=== PATIENT | male | born 1950 | race Caucasian/White ===

== ENCOUNTER 2018-07-13 14:55 | Emergency (ER) | payer SELFPAY ==
[~2018-07-13] VITALS: Ht 175.3 cm; Wt 68.0 kg
--- NOTE | 2018-07-13 15:23 | Emergency Room Report ---
History of Present Illness General Chief Complaint: Abdominal Pain Source: Patient Present Illness HPI Mr. Waters presents with need for urgent hemodialysis. Patient of Dr. Gibson. Patient did not want to be admitted or have a prolonged ED stay. So, he decided to leave against medical advice. He will return in the morning after he makes arrangements for his pet and relative. His last HD session was last . His private auto was not functioning. Consequently, he did not have transportation. He has decision making capability. He understands the risk of arrhthymia and . Discussion was witnessed by RN. Allergies: Coded Allergies: No Known Allergies (Unverified , 07/13/18) Nursing Documentation-H Past Medical History: No History, Except For Hx Gastrointestinal Problems: Yes - constipation Hx Dialysis: Yes - T Th S Physical Exam Vital Signs Date Time Temp Pulse Resp B/P (MAP) Pulse Ox O2 Delivery O2 Flow Rate FiO2 07/13/18 15:03 98.1 63 18 145/66 98 Room Air Medical Decision Making Last Vital Signs Date Time Temp Pulse Resp B/P (MAP) Pulse Ox O2 Delivery O2 Flow Rate FiO2 07/13/18 15:03 98.1 63 18 145/66 98 Room Air Evi Heller MD Jul 13, 2018 15:23
[2018-07-13] MEDS ORDERED: CELEXA20 MG ORAL (15:25)
[2018-07-13 15:27] VITALS: BP 145/66
== END 2018-07-13 16:00 | disposition left against medical advice (07) ==
LOC: EMR 15:25
DX: R10.9 Unspecified abdominal pain (principal); K59.00 Constipation, unspecified; Z91.15 Patient's noncompliance with renal dialysis; Z53.21 Procedure and treatment not carried out due to patient leaving prior to being seen by health care provider
CPT/HCPCS: 99282

== ENCOUNTER 2018-07-14 15:42 | Inpatient (IN) | payer BC ==
[~2018-07-14] VITALS: Ht 175.3 cm; Wt 67.7 kg
[~2018-07-14 15:42] MED LIST: CELEXA20 MG ORAL
[2018-07-14 16:10] VITALS: BP 141/81
[2018-07-14 17:10] VITALS: BP 153/85
[2018-07-14] MEDS ORDERED: Morphine Sulfate 4mg/ml Inj (IV/IM USE ONLY) IVP ONE (17:15)
--- NOTE | 2018-07-14 17:19 | Emergency Room Report ---
History of Present Illness General Chief Complaint: General Complaint Source: Patient Present Illness HPI Mr. Waters is a very pleasant 68-year-old with a history of ESRD on hemodialysis. Due to lack of transportation he was unable to receive dialysis since last . Has been without dialysis for the past 8 days. He left AGAINST MEDICAL ADVICE from the ER yesterday to attend to his relative and pet. He now returns to be admitted for hemodialysis. He is only been on dialysis for a few months. He has a right chest Vas-Cath for access. He does have AV fistula in the left upper arm which is not quite ready for use according to his vascular surgeon. Has generalized abdominal pain for past [address] [employer] [employer] [address] Gibson PCP Dr. Silva Allergies: Coded Allergies: No Known Allergies (Unverified , 07/13/18) Patient History Past Medical History: see triage record, old chart reviewed Past Surgical History: other - AV fistula Social History: Denies: drug use Reviewed Nursing Documentation: PMH: Agreed; PSxH: Agreed Nursing Documentation-PMH Past Medical History: No History, Except For Hx Gastrointestinal Problems: Yes - constipation Hx Dialysis: Yes - T S Review of Systems Constitutional: Denies: sweats, fever, malaise Cardiovascular: Denies: chest pain Gastrointestinal: Reports: abdominal pain All Other Systems: negative except mentioned in HPI Physical Exam Vital Signs Date Time Temp Pulse Resp B/P (MAP) Pulse Ox O2 Delivery O2 Flow Rate FiO2 07/14/18 15:56 98.2 63 20 127/75 93 Room Air Sp02 EP Interpretation: reviewed, normal General Appearance: no apparent distress, alert, GCS 15, non-toxic Head: normocephalic, atraumatic Eyes: bilateral eye normal inspection ENT: hearing grossly normal, normal pharynx, no angioedema, normal voice Neck: full range of motion, supple/symm/no masses Respiratory: chest non-tender, lungs clear, normal breath sounds, no rhonchi, no respiratory distress, no retraction, no accessory muscle use, speaking full sentences Cardiovascular #1: regular rate, rhythm, no edema, no gallop, no JVD, no murmur , no rub Gastrointestinal: normal bowel sounds, non tender, soft, non-distended, no guarding, no rebound Musculoskeletal: back normal, gait/station normal, normal range of motion, non- tender Neurologic: alert, oriented x3, responsive, motor strength/tone normal, sensory intact, speech normal Psychiatric: judgement/insight normal, memory normal, mood/affect normal, no suicidal/homicidal ideation Skin: normal color, no rash, warm/dry, well hydrated Lymphatic: no adenopathy Other Organ Systems right sided vascath with clean bandage LUE AV fistula +thrill +bruit Medical Decision Making Diagnostic Impression: Primary Impression: ESRD (end stage renal disease) Additional Impression: Hyperkalemia ER Course Mr. Waters requires acute emergent treatment for hyperkalemia due to ESRD. EKG changes includes increased amplitude T-wave widened QRS. Patient was treated with calcium, sodium bicarbonate, insulin, albuterol and Kayexalate here in the ED. I have spoken with Dr. Gibson who will arrange admission and dialysis. 35 minutes of critical care time excluding procedures were used in the care of the patient. I reviewed labs and imaging. I reviewed previous electronic medical record. Patient required multiple reassessments and interventions. CXR: right lung opacity, has CVC EKG Diagnostic Results Rate: normal Other Impression bradycardia increased T wave amplitude prolonged AV interval no ST elevation no QT interval QRS slightly widened Last Vital Signs Date Time Temp Pulse Resp B/P (MAP) Pulse Ox O2 Delivery O2 Flow Rate FiO2 07/14/18 15:56 98.2 63 20 127/75 93 Room Air Referrals: Rickey Cazares MD (PCP) Evi Heller MD Jul 14, 2018 17:19
[2018-07-14 17:50] LABS: HEMATOCRIT 35.1 % (42.0-52.0); HEMOGLOBIN 11.6 G/DL (14.2-18.0); MEAN CORPUSCULAR VOLUME 95 FL (80-99); PLATELET COUNT 75 K/UL (150-450); RED BLOOD COUNT 3.68 M/UL (4.70-6.10); RED CELL DISTRIBUTION WIDTH 12.8 % (11.6-14.8)
[2018-07-14 17:52] LABS: ANION GAP 6 mmol/L (5-15); BLOOD UREA NITROGEN 81 mg/dL (7-18); CARBON DIOXIDE 26 MMOL/L (21-32); CHLORIDE 108 MMOL/L (98-107); CREATININE 7.3 MG/DL (0.55-1.30); SODIUM 139 MMOL/L (136-145)
[2018-07-14] MEDS ORDERED: Heparin 1000 units/ml 1ml Vial INJ PRN (18:00)
[2018-07-14] MEDS ORDERED: Heparin Sod 1000 units/ml 10ml IV PRN (18:00)
--- NOTE | 2018-07-14 18:00 | Diagnostic Imaging Report ---
EXAM: XR Chest, 1 View CLINICAL HISTORY: DYSPNEA TECHNIQUE: Frontal view of the chest. COMPARISON: No relevant prior studies available. FINDINGS: Lungs: Bilateral pulmonary hyperinflation. Nonspecific opacity in the right lung apex. Lungs are otherwise clear. Pleural space: Unremarkable. No pneumothorax. Heart: Unremarkable. No cardiomegaly. Mediastinum: Unremarkable. Bones/joints: No acute osseous abnormality. Vasculature: Tortuosity and/or ectasia of the thoracic aorta. Tubes, lines and devices: Right central venous catheter tip projects over the superior vena cava. IMPRESSION: Nonspecific opacity in the right lung apex. Chest CT may be considered for further characterization, if prior imaging is unavailable for comparison.
[2018-07-14 18:01] LABS: POTASSIUM 6.6 MMOL/L (3.5-5.1)
[2018-07-14 18:06] VITALS: BP 130/72
[2018-07-14] MEDS ORDERED: Albuterol ud Inhalation HHN ONE (18:15)
[2018-07-14] MEDS ORDERED: Insulin Human Regular 100units/ml 3ml IV ONE (18:15)
[2018-07-14] MEDS ORDERED: Calcium Gluconate 1gm/10ml vial IVP ONE (18:15)
[2018-07-14] MEDS ORDERED: Sodium Bicarbonate 50ml Carp IV ONE (18:15)
[2018-07-14] MEDS ORDERED: Sodium Polystyrene Sulfonate 15gm Powder ORAL ONE (18:15)
[2018-07-14 21:15] VITALS: BP 171/80
[2018-07-15] VITALS: BP 150/64
[2018-07-15 04:00] VITALS: BP 155/78
[2018-07-15] MEDS: Norco 5mg/325mg tab ORAL PRN ×2 (04:48→22:51)
[2018-07-15] MEDS: Calcium Acetate 667mg Tab ORAL SCH ×3 (06:11→17:08)
[2018-07-15 08:00] VITALS: BP 128/69
[2018-07-15] MEDS: Citalopram Hydrobromide 10mg Tab ORAL SCH (08:24)
[2018-07-15 08:39] LABS: HEMATOCRIT 35.2 % (42.0-52.0); HEMOGLOBIN 11.9 G/DL (14.2-18.0); MEAN CORPUSCULAR VOLUME 93 FL (80-99); PLATELET COUNT 88 K/UL (150-450); RED BLOOD COUNT 3.77 M/UL (4.70-6.10); RED CELL DISTRIBUTION WIDTH 12.9 % (11.6-14.8); WHITE BLOOD COUNT 5.9 K/UL (4.8-10.8)
[2018-07-15 08:54] LABS: ALANINE AMINOTRANSFERASE 143 U/L (12-78); ALBUMIN 3.1 G/DL (3.4-5.0); ALBUMIN/GLOBULIN RATIO 0.8 (1.0-2.7); ALKALINE PHOSPHATASE 88 U/L (46-116); ANION GAP 8 mmol/L (5-15); ASPARTATE AMINO TRANSFERASE 92 U/L (15-37); BILIRUBIN,TOTAL 0.3 MG/DL (0.2-1.0); BLOOD UREA NITROGEN 79 mg/dL (7-18); CALCIUM 8.1 MG/DL (8.5-10.1); CARBON DIOXIDE 27 MMOL/L (21-32); CHLORIDE 104 MMOL/L (98-107); CREATININE 6.9 MG/DL (0.55-1.30); POTASSIUM 5.2 MMOL/L (3.5-5.1); SODIUM 139 MMOL/L (136-145)
[2018-07-15] MEDS ORDERED: Heparin 5000 units/ml inj SUBQ SCH (09:00)
[2018-07-15 12:00] VITALS: BP 135/70
--- NOTE | 2018-07-15 15:16 | History and Physical Report ---
DATE OF ADMISSION: 07/14/2018 CHIEF COMPLAINT: Shortness of breath. HISTORY OF PRESENT ILLNESS: This is a 68-year-old male who was started on dialysis about three months ago. The patient missed a week of dialysis. He was told to go to this hospital's emergency room. He did show up 3 days ago, but left against medical advice since he had to wait. The patient actually was seen by Dr. Heller a few days ago. Finally, the patient showed up yesterday evening. His potassium was noted to be elevated at 6.7. The patient was given Kayexalate and is admitted for dialysis. PAST MEDICAL HISTORY: 1. End-stage renal failure, on dialysis. 2. Hypertensive cardiovascular disease. 3. Depression. 4. Constipation. 5. COPD. MEDICATIONS: Tylenol p.r.n., amlodipine, calcium acetate, Celexa, [place] p.r.n. ALLERGIES: No known drug allergies. FAMILY HISTORY: Unremarkable. SOCIAL HISTORY: The patient lives at home. He drives himself to dialysis. HABITS: The patient still is a heavy smoker. REVIEW OF SYSTEMS: HEENT: Hearing and eyesight are normal. ENDOCRINE: No history of diabetes, thyroid or adrenal problems. RESPIRATORY: He has shortness of breath and chronic cough. CARDIOVASCULAR: Denies chest pain or palpitations. GASTROINTESTINAL: The patient has history of gastritis. He had a full workup in another hospital 3 months ago including upper and lower endoscopies. NEUROLOGIC: No history of stroke, syncope, or Parkinson disease. PSYCHIATRIC: He has history of depression. PHYSICAL EXAMINATION: GENERAL: This is an elderly male, who is in no acute distress. VITAL SIGNS: Blood pressure 128/69, pulse 66 and regular, respirations 20, and temperature 98. HEENT: The head is normocephalic and atraumatic. Pupils are equal, round, and reactive to light and accommodation consensually. NECK: Supple. Trachea midline. There was no lymphadenopathy or thyromegaly. LUNGS: Clear to auscultation and percussion. HEART: Regular rate and rhythm without rubs, murmurs, or gallops. ABDOMEN: Soft and nontender. Bowel sounds were active. EXTREMITIES: No clubbing, cyanosis, or edema. He has a left upper arm AV fistula. He has also a right upper chest PermCath. LABORATORY AND ANCILLARY DATA: Hemoglobin 11.9, WBC 5.9. Serum chemistry, yesterday potassium 6.6 and today 5.2, BUN 79, creatinine 6.9, alkaline phosphatase 88, ALT 143, AST 92. Chest x-ray, compatible with COPD. EKG shows sinus bradycardia. ASSESSMENT: 1. Hyperkalemia. 2. Noncompliance with dialysis. 3. End-stage renal failure, on dialysis. 4. Hypertensive cardiovascular disease. 5. Depression. 6. Constipation. 7. COPD. PLAN: 1. A long hemodialysis today 4 hours to catch up with the patient's hyperkalemia and noncompliance. 2. Consider discharge after dialysis. Rickey Cazares M.D. DR: Frantz JOB#: [id number] CC:
[2018-07-15 16:00] VITALS: BP 145/81
--- NOTE | 2018-07-15 19:45 | General Progress Note ---
Progress Note Progress Note Patient seen and examined Consult dictated Vaughn Pollard MD Jul 15, 2018 19:45
[2018-07-15 20:00] VITALS: BP 149/85
[2018-07-16] VITALS: BP 130/70
--- NOTE | 2018-07-16 02:32 | Consultation ---
DATE OF CONSULTATION: 07/15/2018 VASCULAR SURGERY CONSULTATION CONSULTING PHYSICIAN: Vaughn Pollard M.D. REFERRING PHYSICIAN: Rickey Cazares M.D. REASON FOR EVALUATION: AV shunt evaluation. HISTORY OF PRESENT ILLNESS: The patient is a 68-year-old male who suffers from end-stage renal failure, on hemodialysis, psychiatric disorder, and depression. The patient reportedly missed his dialysis treatment with shortness of breath and potassium of 6.6. Vascular Surgery was consulted for evaluation of his left arm AV shunt. The patient is currently on dialysis via the right chest Perma catheter as his left basilic vein transposition AV fistula which is maturing well. The patient will need duplex as well as fistulogram to further assess the shunt. PAST MEDICAL HISTORY: As above. History of noncompliance, hyperkalemia, end-stage renal failure, on hemodialysis, hypertensive cardiovascular disease, depression, psychiatric disorder, smokes marijuana, constipation, COPD ,right chest Perma catheter and left arm basilic vein transposition avf. MEDICATIONS: See attached MAR. ALLERGIES: No known drug allergies. SOCIAL HISTORY: Heavy smoker and smokes marijuana and pot. Denies any drugs. No alcohol use. FAMILY HISTORY: Unremarkable. SYSTEM REVIEW: CARDIOVASCULAR: No history of chest pain or palpitations. PULMONARY: No cough or hemoptysis. GASTROINTESTINAL: No abdominal pain, constipation, or diarrhea. GENITOURINARY: No urinary complaints. NEUROLOGIC: No history of strokes or seizures. PHYSICAL EXAMINATION: VITAL SIGNS: The patient is afebrile at 97, heart rate is 80, blood pressure 133/70, respirations 16. VASCULAR: The patient has palpable radial pulses. No evidence of carotid bruit. LUNGS: Clear to auscultation. ABDOMEN: Soft and nontender. EXTREMITIES: There is palpable left arm AV shunt thrill. No arm edema. LABORATORY DATA: Laboratories on admission is potassium 6.6, BUN 79, creatinine 6.9. Hemoglobin 11.9, WBC 5.9. IMPRESSION: 1. Admitted with hyperkalemia, shortness of breath, missed dialysis due to history of noncompliance. The patient smokes cigarettes and marijuana. 2. End-stage renal failure, on hemodialysis via the right chest Perma catheter. 3. Maturing left upper arm basilic vein transposition AV fistula. PLAN AND RECOMMENDATIONS: We will obtain a left arm AV shunt duplex. Continue dialysis through the right chest Perma catheter. We will schedule the patient for left arm fistulogram to assess AV shunt once medically optimized. The above was discussed at length with the patient and the nurse at bedside. Vaughn Pollard M.D. DR: Ofelia JOB#: [id number] CC: THOM
[2018-07-16 04:00] VITALS: BP 129/74
[2018-07-16] MEDS: Calcium Acetate 667mg Tab ORAL SCH ×3 (06:42→15:54)
[2018-07-16] MEDS: Norco 5mg/325mg tab ORAL PRN (07:53)
[2018-07-16 08:00] VITALS: BP 109/67
[2018-07-16] MEDS: Citalopram Hydrobromide 10mg Tab ORAL SCH (08:05)
--- NOTE | 2018-07-16 08:42 | Nephrology Progress Note ---
Assessment/Plan Plan Abd Pain - Elevated Liver enzymes noted. Check Abd US. GI consulted. ESRD - HD Subjective Subjective C/O severe abd pain + cramping Objective Objective Last 24 Hour Vital Signs Date Time Temp Pulse Resp B/P (MAP) Pulse Ox O2 Delivery O2 Flow Rate FiO2 07/16/18 08:05 63 109/67 07/16/18 08:00 99.3 63 18 109/67 (81) 95 07/16/18 04:00 98.4 66 18 129/74 (92) 92 07/16/18 04:00 75 07/16/18 00:00 98.4 60 19 130/70 (90) 93 07/16/18 00:00 64 07/15/18 21:00 Room Air Room Air 07/15/18 20:00 98.6 61 18 149/85 (106) 94 07/15/18 20:00 78 07/15/18 16:00 99.4 62 20 145/81 (102) 92 07/15/18 16:00 65 07/15/18 12:00 98.3 62 20 135/70 (91) 92 07/15/18 12:00 59 07/15/18 09:00 Room Air Room Air Intake and Output 07/15/18 07/16/18 18:59 06:59 Intake Total 480 ml 320 ml Balance 480 ml 320 ml Intake Oral 480 ml 320 ml # Voids 1 1 Height (Feet): 5 Height (Inches): 9.00 Weight (Pounds): 149 Objective Cv RR Lungs CTAP Abd SNT. BS + E No CCE Rickey Cazares MD Jul 16, 2018 08:42
[2018-07-16] MEDS ORDERED: Isovue-300 100ml vial INJ PRN (10:00)
--- NOTE | 2018-07-16 10:00 | General Progress Note ---
Assessment/Plan Problem List: (1) Anemia ICD Codes: D64.9 - Anemia, unspecified SNOMED: 241413651 (2) Constipation ICD Codes: K59.00 - Constipation, unspecified SNOMED: 80249540 (3) Abdominal pain ICD Codes: R10.9 - Unspecified abdominal pain SNOMED: 57736242 (4) Hyperkalemia ICD Codes: E87.5 - Hyperkalemia SNOMED: 70522858 (5) ESRD (end stage renal disease) ICD Codes: N18.6 - End stage renal disease SNOMED: 05683757 Assessment/Plan anemia work up repeat labs CT laxatives pain control GI procedures if needed Subjective ROS Limited/Unobtainable: Yes Allergies: Coded Allergies: No Known Allergies (Unverified , 07/13/18) Subjective abd pain Objective Last 24 Hour Vital Signs Date Time Temp Pulse Resp B/P (MAP) Pulse Ox O2 Delivery O2 Flow Rate FiO2 07/16/18 09:00 Room Air Room Air 07/16/18 08:05 63 109/67 07/16/18 08:00 99.3 63 18 109/67 (81) 95 07/16/18 04:00 98.4 66 18 129/74 (92) 92 07/16/18 04:00 75 07/16/18 00:00 98.4 60 19 130/70 (90) 93 07/16/18 00:00 64 07/15/18 21:00 Room Air Room Air 07/15/18 20:00 98.6 61 18 149/85 (106) 94 07/15/18 20:00 78 07/15/18 16:00 99.4 62 20 145/81 (102) 92 07/15/18 16:00 65 07/15/18 12:00 98.3 62 20 135/70 (91) 92 07/15/18 12:00 59 Intake and Output 07/15/18 07/16/18 18:59 06:59 Intake Total 480 ml 320 ml Balance 480 ml 320 ml Intake Oral 480 ml 320 ml # Voids 1 1 Height (Feet): 5 Height (Inches): 9.00 Weight (Pounds): 149 General Appearance: alert EENT: normal ENT inspection Neck: supple Cardiovascular: normal rate Respiratory/Chest: lungs clear Abdomen: soft, hypoactive bowel sounds, tender Extremities: non-tender Vosoghi,Lopez MD Jul 16, 2018 10:00
[2018-07-16] MEDS ORDERED: Norco 5mg/325mg tab ORAL PRN (10:30)
[2018-07-16] MEDS: Morphine Sulfate 2mg/ml Inj IVP PRN ×2 (10:44→15:18)
--- NOTE | 2018-07-16 11:53 | Diagnostic Imaging Report ---
Ultrasound abdomen complete INDICATION: Abdominal pain COMPARISON: None TECHNIQUE: Real-time sonographic evaluation of the abdomen is performed using grayscale and color flow. FINDINGS: The liver demonstrates normal echogenicity and measures 15.9 cm. The portal vein is patent with appropriate direction of flow. The common duct is not abnormally dilated. The gallbladder demonstrates no abnormal wall thickening, pericholecystic free fluid, or shadowing echogenic foci. Visualized portions of the pancreas are within normal limits. The spleen is normal in size and echogenicity. The right kidney measures 6.7 cm in length. No contour deforming masses, hydronephrosis, or shadowing echogenic stones are identified. The left kidney measures 6.6 cm in length. No contour deforming masses, hydronephrosis, or shadowing echogenic stones are identified. Bilateral kidneys demonstrate increased echogenicity. Visualized portions of the aorta and IVC are unremarkable. No free fluid is identified. IMPRESSION: Atrophic bilateral kidneys with increased echogenicity suggestive of chronic renal disease. Otherwise normal abdominal ultrasound.
[2018-07-16 12:00] VITALS: BP 127/70
[2018-07-16] MEDS ORDERED: Lactulose 10gm/15ml UDC ORAL SCH (13:00)
[2018-07-16 16:00] VITALS: BP 120/76
[2018-07-16] MEDS ORDERED: Docusate 100mg cap ORAL SCH (18:00)
[2018-07-16] MEDS ORDERED: Miralax 17gm pkt ORAL SCH (21:00)
[2018-07-16] MEDS ORDERED: Tamsulosin 0.4mg cap ORAL SCH (21:00)
[2018-07-17] MEDS ORDERED: Heparin Sod 1000 units/ml 10ml IV SCH (08:45)
--- NOTE | 2018-07-18 08:07 | Discharge Summary ---
Discharge Summary Discharge Summary _ DATE OF ADMISSION: 07/14/2018 DATE OF DISCHARGE: 07/16/2018. Patient left AGAINST MEDICAL ADVICE REASON FOR ADMISSION: 68 years old male with past medical history of end-stage renal disease, on hemodialysis recently for 3 months, hypertension, COPD, depression, presented to emergency department after missing a week of dialysis. Patient was in the hospital few days ago , but signed AGAINST MEDICAL ADVICE at that time. Upon evaluation potassium 6.6, BUN 81 creatinine 7.3. Hemoglobin 11.6, hematocrit 35.1. Chest x-ray revealed nonspecific right apex opacity. Patient was given Kayexalate in emergency room and admitted for further management for hemodialysis with diagnoses of hyperkalemia, noncompliance with hemodialysis, hypertensive cardiovascular disease, constipation, COPD, depression. CONSULTANTS: GI specialist Dr. [place] [facility] COU[facility]SE: Patient admitted and started on hemodialysis with close monitoring of volumes, renal parameters and electrolytes. Electrolytes corrected as needed. Vascular surgery consult was requested for AV shunt evaluation. Patient was receiving hemodialysis via right chest Perma-catheter. Patient had maturing left upper extremity basilic vein transposition AV fistula. Vascular surgeon ordered duplex of left upper extremity AV shunt. ' He recommended to schedule patient for fistulogram to assess AV shunt. Hemoglobin and hematocrit were closely monitored. Elevated liver enzymes were noted, AST 92, ALT 143. Patient complained of abdominal pain. Abdominal ultrasound demonstrated medical renal disease , otherwise was unremarkable. GI consult was requested. Bowel regimen instituted. GI prophylaxis provided. CT of the abdomen and pelvis was subsequently ordered . Patient was on Epogen. Anemia workup was ordered. GI specialist recommended GI procedure if needed. DVT prophylaxis provided. Blood pressure was managed with calcium channel kei. Pain management was addressed as needed. Antidepressive medication/Celexa resumed. Supportive care provided. Antiemetics and antipruritic provided as needed. PhosLo was continued. Supplemental oxygen was on board as needed along with pulmonary toilet. Pulse oximetry was stable on room air. No signs of respiratory distress. Patient started on nicotine patch. Patient was counseled on smoking cessation.. Patient decided to sign AGAINST MEDICAL ADVICE. The risks and consequences of signing AGAINST MEDICAL ADVICE were discussed with patient in detail. Patient verbalized understanding, nevertheless signed AMA form and left. FINAL DIAGNOSES: Hyperlipidemia End-stage renal disease, on hemodialysis Noncompliance with hemodialysis Hypertensive cardiovascular disease Constipation COPD Depression I have been assigned to dictate discharge summary for this account. I was not involved in the patient's management. Debra Burgess NP Jul 18, 2018 08:07
== END 2018-07-16 16:25 | disposition left against medical advice (07) | DRG 682 ==
LOC: EMR 16:46 → EDBEDREQ 19:16 → 2E 19:30 → EDBEDREQ 20:08 → OBSVTOIN 20:37
PROC: 5A1D70Z Performance of Urinary Filtration, Intermittent, Less than 6 Hours Per Day (ICD-10-PCS; principal; 2018-07-15)
DX: I13.11 Hypertensive heart and chronic kidney disease without heart failure, with stage 5 chronic kidney disease, or end stage renal disease (principal); N18.6 End stage renal disease; Z99.2 Dependence on renal dialysis; Z91.15 Patient's noncompliance with renal dialysis; E78.5 Hyperlipidemia, unspecified; K59.00 Constipation, unspecified; J44.9 Chronic obstructive pulmonary disease, unspecified; F32.9 Major depressive disorder, single episode, unspecified; E87.5 Hyperkalemia; F17.200 Nicotine dependence, unspecified, uncomplicated; D64.9 Anemia, unspecified
CPT/HCPCS: 36415; 71045; 76700; 80048; 80053; 85007; 85025; 87081; 93971; 94640; 94664; 96374; 96375; 96376; 99285; J2405

== ENCOUNTER 2018-10-02 18:12 | Inpatient (IN) | payer BC, OTHER ==
[~2018-10-02] VITALS: Ht 175.3 cm; Wt 72.1 kg
[2018-10-02 18:50] VITALS: BP 157/77
[2018-10-02] MEDS ORDERED: Isovue-300 100ml vial INJ PRN (19:00)
[2018-10-02 19:02] LABS: HEMATOCRIT 33.1 % (42.0-52.0); HEMOGLOBIN 10.8 G/DL (14.2-18.0); MEAN CORPUSCULAR VOLUME 97 FL (80-99); PLATELET COUNT 99 K/UL (150-450); RED BLOOD COUNT 3.41 M/UL (4.70-6.10); RED CELL DISTRIBUTION WIDTH 14.1 % (11.6-14.8); WHITE BLOOD COUNT 9.8 K/UL (4.8-10.8)
[2018-10-02 19:03] LABS: APPEARANCE,URINE CLEAR; BILIRUBIN, URINE NEGATIVE (NEGATIVE); COLOR,URINE PALE YELLOW; GLUCOSE, URINE (UA) 2+ (NEGATIVE); KETONES,URINE NEGATIVE (NEGATIVE); LEUKOCYTE ESTERASE ,URINE NEGATIVE (NEGATIVE); NITRITE,URINE NEGATIVE (NEGATIVE); PH,URINE 6.5 (4.5-8.0); PROTEIN,URINE 3+ (NEGATIVE); UROBILINOGEN,URINE NORMAL MG/DL (0.0-1.0)
[2018-10-02 19:04] LABS: BASOPHILS % (AUTO) 0.6 % (0.0-2.0); EOSINOPHILS % (AUTO) 0.4 % (0.0-3.0); MONOCYTES % (AUTO) 4.6 % (1.0-10.0); NEUTROPHILS % (AUTO) 83.4 % (45.0-75.0)
[2018-10-02 19:21] LABS: ANION GAP 12 mmol/L (5-15); BLOOD UREA NITROGEN 87 mg/dL (7-18); CALCIUM 8.6 MG/DL (8.5-10.1); CARBON DIOXIDE 23 MMOL/L (21-32); CHLORIDE 104 MMOL/L (98-107); POTASSIUM 5.2 MMOL/L (3.5-5.1); SODIUM 139 MMOL/L (136-145)
[2018-10-02 19:25] LABS: ALANINE AMINOTRANSFERASE 20 U/L (12-78); ALBUMIN 3.5 G/DL (3.4-5.0); ALBUMIN/GLOBULIN RATIO 0.9 (1.0-2.7); ALKALINE PHOSPHATASE 56 U/L (46-116); ASPARTATE AMINO TRANSFERASE 13 U/L (15-37); BILIRUBIN,TOTAL 0.4 MG/DL (0.2-1.0); CREATINE KINASE 140 U/L (26-308)
[2018-10-02] MEDS ORDERED: Morphine Sulfate 4mg/ml Inj (IV/IM USE ONLY) IVP ONE (19:45)
[2018-10-02] MEDS ORDERED: Norco 5mg/325mg tab ORAL PRN (23:15)
[2018-10-02] MEDS ORDERED: Acetaminophen 500mg (ES) tab ORAL PRN (23:15)
--- NOTE | 2018-10-02 23:59 | Emergency Room Report ---
History of Present Illness General Chief Complaint: Abdominal Pain Source: Patient Present Illness HPI 68-year-old male presents ED for evaluation. Complaining of abdominal pain and vomiting times one week. States he is "constipated". Pain is sharp, 10 out of 10, nonradiating. States he is scheduled for dialysis today but could not completely dialysis because he was in too much pain. Denies chest pain or shortness of breath. Denies fevers or chills. No other aggravating relieving factors. Denies any other associated symptoms Allergies: Coded Allergies: No Known Allergies (Unverified , 07/13/18) Patient History Past Medical History: renal disease, dialysis Past Surgical History: none Pertinent Family History: none Social History: Denies: smoking, alcohol use, drug use Immunizations: UTD Reviewed Nursing Documentation: PMH: Agreed; PSxH: Agreed Nursing Documentation-PMH Past Medical History: No History, Except For Hx Cardiac Problems: No Hx Cancer: No Hx Gastrointestinal Problems: No Hx Dialysis: Yes - M-W-F Hx Neurological Problems: No Review of Systems All Other Systems: negative except mentioned in HPI Physical Exam Vital Signs Date Time Temp Pulse Resp B/P (MAP) Pulse Ox O2 Delivery O2 Flow Rate FiO2 10/02/18 18:15 98.1 74 20 150/79 95 Room Air 10/02/18 18:50 95 Sp02 EP Interpretation: reviewed, normal General Appearance: no apparent distress, alert, GCS 15, non-toxic Head: normocephalic, atraumatic Eyes: bilateral eye normal inspection, bilateral eye PERRL ENT: hearing grossly normal, normal pharynx, no angioedema, normal voice Neck: full range of motion, supple/symm/no masses Respiratory: chest non-tender, lungs clear, normal breath sounds, speaking full sentences Cardiovascular #1: regular rate, rhythm, no edema Cardiovascular #2: 2+ carotid (R), 2+ carotid (L), 2+ radial (R), 2+ radial (L) , 2+ dorsalis pedis (R), 2+ dorsalis pedis (L) Gastrointestinal: normal bowel sounds, soft, no guarding, no rebound, distended , tenderness Rectal: deferred Genitourinary: normal inspection, no CVA tenderness Musculoskeletal: back normal, gait/station normal, normal range of motion, non- tender Neurologic: alert, oriented x3, responsive, motor strength/tone normal, sensory intact, speech normal Psychiatric: judgement/insight normal, memory normal, mood/affect normal, no suicidal/homicidal ideation Reflexes: 3+ bicep (R), 3+ bicep (L), 3+ tricep (R), 3+ tricep (L), 3+ knee (R) , 3+ knee (L) Skin: normal color, no rash, warm/dry, well hydrated Lymphatic: no adenopathy Medical Decision Making Diagnostic Impression: Primary Impression: Constipation Qualified Codes: K59.00 - Constipation, unspecified Additional Impressions: Abdominal pain Qualified Codes: R10.9 - Unspecified abdominal pain ESRD (end stage renal disease) on dialysis ER Course Hospital Course 68-year-old male presents ED complaining of abdominal pain and vomiting. Missed dialysis today Differential diagnoses include:SBO, dehydration, gastritis Clinical course Patient placed on stretcher. set up mechanic coating machines. After initial history and physical I ordered labs, pain medication and CT scan Labs - no leukocytosis, Hb/Hct stable, BUN/Cr elevated CT abdomen and pelvis - ? proctitis, fecal impaction Antibiotics given. Case discussed with Dr. Quinonez (as per insurance) and he agreed to accept the patient to his service for further care and support DR oneil will consult; no indication for emergent dialysis I feel this is a highly complex case requiring extensive working including EKG/ Rhythm strip, Xray/CT/US, Blood/urine lab work, repeat exams while in ED, and administration of strong opiates/narcotics for pain control, admission to hospital or close patient follow up. Diagnosis -constipation, abdominal pain, ESRD Patient admitted to floor in serious condition Labs Test 10/02/18 18:30 White Blood Count 9.8 K/UL (4.8-10.8) Red Blood Count 3.41 M/UL (4.70-6.10) Hemoglobin 10.8 G/DL (14.2-18.0) Hematocrit 33.1 % (42.0-52.0) Mean Corpuscular Volume 97 FL (80-99) Mean Corpuscular Hemoglobin 31.7 PG (27.0-31.0) Mean Corpuscular Hemoglobin Concent 32.7 G/DL (32.0-36.0) Red Cell Distribution Width 14.1 % (11.6-14.8) Platelet Count 99 K/UL (150-450) Mean Platelet Volume 5.5 FL (6.5-10.1) Neutrophils (%) (Auto) 83.4 % (45.0-75.0) Lymphocytes (%) (Auto) 11.0 % (20.0-45.0) Monocytes (%) (Auto) 4.6 % (1.0-10.0) Eosinophils (%) (Auto) 0.4 % (0.0-3.0) Basophils (%) (Auto) 0.6 % (0.0-2.0) Urine Color Pale yellow Urine Appearance Clear Urine pH 6.5 (4.5-8.0) Urine Specific [place] 1.005 (1.005-1.035) Urine Protein 3+ (NEGATIVE) Urine Glucose (UA) 2+ (NEGATIVE) Urine Ketones Negative (NEGATIVE) Urine Blood 2+ (NEGATIVE) Urine Nitrite Negative (NEGATIVE) Urine Bilirubin Negative (NEGATIVE) Urine Urobilinogen Normal MG/DL (0.0-1.0) Urine Leukocyte Esterase Negative (NEGATIVE) Urine RBC 0-2 /HPF (0 - 0) Urine WBC 0-2 /HPF (0 - 0) Urine Squamous Epithelial Cells Occasional /LPF Urine Bacteria Occasional /HPF (NONE) Sodium Level 139 MMOL/L (136-145) Potassium Level 5.2 MMOL/L (3.5-5.1) Chloride Level 104 MMOL/L (98-107) Carbon Dioxide Level 23 MMOL/L (21-32) Anion Gap 12 mmol/L (5-15) Blood Urea Nitrogen 87 mg/dL (7-18) Creatinine 7.0 MG/DL (0.55-1.30) Estimat Glomerular Filtration Rate 7.8 mL/min (>60) Glucose Level 103 MG/DL (74-106) Calcium Level 8.6 MG/DL (8.5-10.1) Total Bilirubin 0.4 MG/DL (0.2-1.0) Aspartate Amino Transf (AST/SGOT) 13 U/L (15-37) Alanine Aminotransferase (ALT/SGPT) 20 U/L (12-78) Alkaline Phosphatase 56 U/L (46-116) Total Creatine Kinase 140 U/L (26-308) Troponin I 0.016 ng/mL (0.000-0.056) Total Protein 7.5 G/DL (6.4-8.2) Albumin 3.5 G/DL (3.4-5.0) Globulin 4.0 g/dL Albumin/Globulin Ratio 0.9 (1.0-2.7) Lipase 110 U/L (73-393) EKG Diagnostic Results Rate: normal Rhythm: NSR ST Segments: no acute changes ASA given to the pt in ED: No Rhythm Strip Diag. Results EP Interpretation: yes Rhythm: NSR, no PVC's, no ectopy CT/MRI/US Diagnostic Results CT/MRI/US Diagnostic Results : Imaging Test Ordered: CT A/P Impression Status post right inguinal hernia repair. Atrophic kidneys. Sigmoid/rectal wall thickening. Moderate formed stool noted. Cystitis with wall thickening Last Vital Signs Date Time Temp Pulse Resp B/P (MAP) Pulse Ox O2 Delivery O2 Flow Rate FiO2 10/02/18 22:08 98.0 72 12 151/76 98 Room Air 10/02/18 18:50 95 Status: improved Disposition: ADMITTED INPATIENT Condition: Serious Referrals: Rickey Cazares MD (PCP) Rivera Acevedo MD Oct 02, 2018 23:59
[2018-10-03] MEDS ORDERED: Piperacillin/Tazobactam 3.375 GM in D5W 110 ML IVPB ONE ×2
[2018-10-03] MEDS ORDERED: HYDROcodone/Acetamin 10/325 tab ORAL PRN
[2018-10-03] MEDS ORDERED: Norco 5mg/325mg tab ORAL PRN (00:15)
[2018-10-03] MEDS: HYDROcodone/Acetamin 10/325 tab ORAL PRN ×2 (00:27→06:01)
[2018-10-03 01:00] VITALS: BP 139/73
[2018-10-03] MEDS ORDERED: Morphine Sulfate 2mg/ml Inj IVP PRN (06:00)
[2018-10-03] MEDS: Milk of Magnesia 30ml Ud ORAL PRN ×2 (06:01→21:33)
[2018-10-03] MEDS: Morphine Sulfate 4mg/ml Inj (IV/IM USE ONLY) IVP PRN ×4 (06:18→21:33)
--- NOTE | 2018-10-03 06:30 | History and Physical Report ---
DATE OF ADMISSION: 10/03/2018 CHIEF COMPLAINT: Abdominal pain. HISTORY OF PRESENT ILLNESS: The patient is a 68-year-old male. He has a history of depression and end-stage renal disease. He has been on hemodialysis for the last 3 months presented with complaints of one week of mid epigastric and left lower quadrant abdominal pain. According to the patient, he was well until a week ago when he developed worsening abdominal pain, dry heaving, and nausea, but no vomiting. According to the patient, he has been eating, but has not been having any bowel movements. He presented to the emergency room. On evaluation there, he was in severe pain. His initial laboratory tests were unremarkable. A CT scan of the abdomen was done. The results which are currently pending. Per report from the ER, there is nothing significant. In light of the patient's significant pain, he is admitted for further evaluation and care. PAST MEDICAL HISTORY: As above. PAST SURGICAL HISTORY: Hernia repair. CURRENT MEDICATIONS: Reconciled and reviewed. ALLERGIES: None. FAMILY HISTORY: None. SOCIAL HISTORY: Negative for tobacco, ethanol, or drugs. REVIEW OF SYSTEMS: Negative except for abdominal pain, nausea, and constipation. PHYSICAL EXAMINATION: VITAL SIGNS: Temperature 98, pulse 72, respirations 17, and blood pressure 139/73. GENERAL: The patient is well-developed, moderate amount of distress due to pain. NECK: Supple. HEART: Regular rate and rhythm. LUNGS: Clear. CHEST: There is a chest wall dialysis catheter appears clean. ABDOMEN: Soft. Diffusely tender with some guarding, but no rebound. EXTREMITIES: Without clubbing or cyanosis. The patient has a good bruit in the left upper extremity. LABORATORY DATA: Sodium 139, potassium 5.2, creatinine was 7, and troponin 0.016. White count 10, hemoglobin 10, hematocrit 33, and platelet count of 99,000. ASSESSMENT: This is a 68-year-old male with a history of end-stage renal disease admitted with complaints of abdominal pain, possibly secondary to constipation. PROBLEM LIST: 1. Abdominal pain, unclear etiology. 2. End-stage renal disease. PLAN: 1. Repeat CAT scan. 2. IV pain medications. Antiemetics. IV PPI. 3. Gastrointestinal and surgical consultation has been obtained. 4. Renal consultation for continuation of the patient's hemodialysis. David Quinonez M.D. DR: MAGGIE JOB#: [id number] CC:
[2018-10-03 08:00] VITALS: BP 130/73
[2018-10-03] MEDS ORDERED: Heparin 5000 units/ml inj SUBQ SCH (09:00)
--- NOTE | 2018-10-03 09:09 | Diagnostic Imaging Report ---
Clinical Indication: Abdominal pain Technique: No oral contrast utilized, per emergency room physician request IV administration nonionic contrast. Venous phase spiral acquisition obtained through the abdomen and pelvis. Multiplanar reconstructions were generated. Total dose length product 513.48 mGycm. CTDIvol(s) 10.38 mGy. Dose reduction achieved using automated exposure control Comparison: Reference made to abdominal ultrasound dated 07/16/2018 Findings: The appendix is normal. No evidence of diverticulosis or diverticulitis. There is equivocal wall thickening of the sigmoid and rectum. There is evidence of prior right inguinal hernia repair with mesh. Small amount of fat remains within the inguinal canal, but no herniated bowel No small bowel distention. No free or loculated intraperitoneal gas or fluid is evident. The distal esophagus, stomach, duodenum are unremarkable. The liver, gallbladder, bile ducts, pancreas, spleen, adrenals are unremarkable. The kidneys are atrophic and demonstrate subcentimeter low-attenuation lesions which are too small to characterize. No pelvic mass or adenopathy. There is mild bladder wall thickening an possibly infiltration of the perivesical fat. The included lung bases are clear. The bones are unremarkable. Impression: Possible sigmoid and rectal wall thickening, could indicate colitis/proctitis. Correlate with clinical findings Mild bladder wall thickening and perivesical fat infiltration, concerning for cystitis. Correlate with clinical findings Atrophic bilateral kidneys, also described on prior ultrasound Subcentimeter low-attenuation lesions in the kidneys, too small to characterize, most likely benign cortical cysts. No further follow-up necessary This agrees with the preliminary interpretation provided overnight by Dr. Baca The CT scanner at [facility] is accredited by the [employer] and the scans are performed using protocols designed to limit radiation exposure to as low as reasonably achievable to attain images of sufficient resolution adequate for diagnostic evaluation.
[2018-10-03] MEDS: Citalopram Hydrobromide 10mg Tab ORAL SCH (09:11)
[2018-10-03] MEDS: Pantoprazole Inj IVP SCH (09:11)
[2018-10-03 12:00] VITALS: BP 130/78
[2018-10-03] MEDS ORDERED: Heparin Sod 1000 units/ml 10ml IV PRN ×2 (12:30)
--- NOTE | 2018-10-03 15:30 | Consultation ---
DATE OF CONSULTATION: 10/03/2018 NEPHROLOGY CONSULTATION CONSULTING PHYSICIAN: Rickey Cazares M.D. ATTENDING PHYSICIAN: David Quinonez M.D. REASON FOR CONSULTATION: This is my dialysis patient. HISTORY OF PRESENT ILLNESS: This is a 68-year-old male who is on dialysis every Tuesday, Tuesday, Tuesday. The patient missed several dialysis rounds due to severe obstipation. The patient called my office and we instructed the patient to come to this hospital ER. Due to his insurance, the patient is admitted under Dr. Quinonez. PAST MEDICAL HISTORY: 1. End-stage renal failure, on dialysis. 2. Chronic abdominal pain and constipation. 3. Depression. HOME MEDICATIONS: 1. Tylenol p.r.n. 2. Celexa. 3. [place] p.r.n. ALLERGIES: No known drug allergies. FAMILY HISTORY: Unremarkable. SOCIAL HISTORY: The patient lives at home. HABITS: He is nonsmoker and nondrinker. There is no history of illicit drug abuse. REVIEW OF SYSTEMS: HEENT: Hearing and eyesight are normal. ENDOCRINE: No history of diabetes, thyroid, or adrenal problems. RESPIRATORY: Denies shortness of breath, cough, or hemoptysis. CARDIOVASCULAR: Denies chest pain or palpitations. GASTROINTESTINAL: Please refer to history of present illness. NEUROLOGICAL: No history of stroke, syncope, or Parkinson disease. PHYSICAL EXAMINATION: GENERAL: This is an elderly male, who is in pain. VITAL SIGNS: Blood pressure 130/73, pulse 65 sinus, respirations 19, temperature 98.1. HEENT: Head is normocephalic and atraumatic. Pupils are equal, round, and reactive to light and accommodation consensually. NECK: Supple. Trachea midline. There is no lymphadenopathy or thyromegaly. LUNGS: Clear to auscultation and percussion. HEART: Regular rate and rhythm without rubs, murmurs, or gallops. ABDOMEN: Soft. Diffusely tender. Bowel sounds were active. EXTREMITIES: No clubbing, cyanosis, or edema. EXTREMITIES: He has a left upper arm AV fistula. LABORATORY AND ANCILLARY DATA: Hemoglobin 10.8, otherwise within normal limits. Serum chemistry, potassium 5.2, BUN 87, creatinine 7, otherwise within normal limits. IMAGING STUDIES: CT scan of the abdomen, possible sigmoid and rectal wall thickening. ASSESSMENT: 1. Obstipation. 2. End-stage renal failure, on dialysis. 3. Chronic abdominal pain and constipation. 4. Depression. PLAN: 1. Workup per Dr. Quinonez. 2. Hemodialysis. The patient had only one hour of run due to his pain, to complete run tomorrow. 3. Continue home medications and symptomatic therapy . Rickey Cazares M.D. DR: Nano JOB#: [id number] CC:
[2018-10-03 16:00] VITALS: BP 130/69
[2018-10-03 20:00] VITALS: BP 132/73
[2018-10-03] MEDS: Heparin 5000 units/ml inj SUBQ SCH (20:37)
[2018-10-03] MEDS: Tamsulosin 0.4mg cap ORAL SCH (21:07)
--- NOTE | 2018-10-03 22:00 | Consultation ---
DATE OF CONSULTATION: 10/03/2018 UROLOGY CONSULTATION CONSULTING PHYSICIAN: Kahlil Yu M.D. REFERRING PHYSICIAN: David Quinonez M.D. REASON FOR CONSULTATION: For evaluation of difficulty voiding. HISTORY OF PRESENT ILLNESS: This is a 68-year-old male who was admitted to the hospital because of abdominal pain. Apparently, he had been constipated with no bowel movement for about a week. He was complaining of difficulty voiding. Urology evaluation was requested. The patient has history of end-stage renal disease. He has been on hemodialysis for about 3 months or so. PAST MEDICAL HISTORY: Significant as above. MEDICATIONS: Current medication list in the hospital was reviewed. ALLERGIES: No known drug allergies. REVIEW OF SYSTEMS: As above. PHYSICAL EXAMINATION: GENERAL: A well-developed, well-nourished male, in no acute distress. VITAL SIGNS: Temperature 98.7, blood pressure 132/73. ABDOMEN: Soft. No CVA tenderness. GENITOURINARY: Prostate is about 30 to 40 g, firm. LABORATORY DATA: UA showed 3+ protein, 2+ blood. White count 9.8, hemoglobin 10.8, and platelets of 99,000. BUN 87, creatinine 7.0. DIAGNOSTIC IMAGING STUDIES: The patient had a CT scan of the abdomen and pelvis, there was mention of sigmoid and rectal wall thickening, mild bladder wall thickening, atrophic bilateral kidneys. The patient did have a bladder scan on the floor. Postvoid residual was reported 131 mL. IMPRESSION: 1. Lower urinary tract symptoms. 2. BPH. 3. End-stage renal disease, on hemodialysis. 4. Proteinuria. 5. Microhematuria. 6. Cystitis. 7. Renal atrophy. PLAN AND DISCUSSION: The patient again does have lower urinary tract symptoms, could be secondary to BPH and exacerbated by his constipation. At this time, he will be monitored and I will recommend adding Flomax 0.4 mg nightly. He may benefit from antibiotics and I would recommend cystoscopy to evaluate the urinary tract, which can be done later on an elective basis. Thank you for this consultation. Kahlil Yu M.D. : Farida JOB#: [id number] CC:
[2018-10-04] VITALS (7 sets, daily range): BP systolic 87–148; BP diastolic 58–70
[2018-10-04] MEDS: Morphine Sulfate 4mg/ml Inj (IV/IM USE ONLY) IVP PRN ×4 (02:13→21:41)
[2018-10-04 06:42] LABS: BASOPHILS % (AUTO) 0.5 % (0.0-2.0); EOSINOPHILS % (AUTO) 1.4 % (0.0-3.0); HEMATOCRIT 31.8 % (42.0-52.0); HEMOGLOBIN 10.4 G/DL (14.2-18.0); LYMPHOCYTES % (AUTO) 12.7 % (20.0-45.0); MEAN CORPUSCULAR VOLUME 96 FL (80-99); MONOCYTES % (AUTO) 8.5 % (1.0-10.0); NEUTROPHILS % (AUTO) 76.9 % (45.0-75.0); PLATELET COUNT 100 K/UL (150-450); RED CELL DISTRIBUTION WIDTH 13.9 % (11.6-14.8); WHITE BLOOD COUNT 9.1 K/UL (4.8-10.8)
[2018-10-04 07:09] LABS: ANION GAP 8 mmol/L (5-15); BLOOD UREA NITROGEN 82 mg/dL (7-18); CALCIUM 7.8 MG/DL (8.5-10.1); CARBON DIOXIDE 28 MMOL/L (21-32); CHLORIDE 105 MMOL/L (98-107); CREATININE 6.8 MG/DL (0.55-1.30); POTASSIUM 5.8 MMOL/L (3.5-5.1); SODIUM 141 MMOL/L (136-145)
[2018-10-04] MEDS: Citalopram Hydrobromide 10mg Tab ORAL SCH (08:16)
[2018-10-04] MEDS: Pantoprazole Inj IVP SCH (08:19)
[2018-10-04] MEDS: Heparin 5000 units/ml inj SUBQ SCH ×2 (08:19→20:31)
--- NOTE | 2018-10-04 08:24 | General Progress Note ---
Assessment/Plan Problem List: (1) Dialysis complication ICD Codes: T82.9XXA - Unspecified complication of cardiac and vascular prosthetic device, implant and graft, initial encounter SNOMED: 07707624, 28124884, 287223766 (2) Anemia ICD Codes: D64.9 - Anemia, unspecified SNOMED: 297549459 (3) Abdominal pain ICD Codes: R10.9 - Unspecified abdominal pain SNOMED: 80737028 Qualifiers: Qualified Codes: R10.9 - Unspecified abdominal pain (4) Constipation ICD Codes: K59.00 - Constipation, unspecified SNOMED: 36633520 Qualifiers: Qualified Codes: K59.00 - Constipation, unspecified (5) ESRD (end stage renal disease) on dialysis ICD Codes: N18.6 - End stage renal disease; Z99.2 - Dependence on renal dialysis SNOMED: 093280962 Status: stable, progressing Assessment/Plan gi and surgery eval pending pain rx HD per renal Subjective ROS Limited/Unobtainable: No Constitutional: Reports: malaise, weakness HEENT: Reports: no symptoms Cardiovascular: Reports: no symptoms Respiratory: Reports: no symptoms Gastrointestinal/Abdominal: Reports: abdominal pain Genitourinary: Reports: no symptoms Neurologic/Psychiatric: Reports: no symptoms Endocrine: Reports: no symptoms Hematologic/Lymphatic: Reports: no symptoms Allergies: Coded Allergies: No Known Allergies (Unverified , 07/13/18) All Systems: reviewed and negative except above Subjective c/o severe abd pain. no relieved with morphine. no bms. colitis/proctitis on ct. Objective Last 24 Hour Vital Signs Date Time Temp Pulse Resp B/P (MAP) Pulse Ox O2 Delivery O2 Flow Rate FiO2 10/04/18 08:00 97.6 66 20 106/58 (74) 94 10/04/18 04:00 98.8 66 17 108/62 (77) 93 10/04/18 00:00 99.5 68 18 112/66 (81) 93 10/03/18 21:00 Room Air 10/03/18 20:00 98.7 63 20 132/73 (92) 94 10/03/18 16:00 98.1 63 20 130/69 (89) 91 10/03/18 12:00 97.9 61 20 130/78 (95) 91 10/03/18 09:00 Room Air Intake and Output 10/03/18 10/04/18 19:00 07:00 Intake Total 480 ml 360 ml Balance 480 ml 360 ml Intake Oral 480 ml 360 ml # Voids 4 3 Laboratory Tests 10/04/18 05:30: White Blood Count 9.1, Red Blood Count 3.30L, Hemoglobin 10.4L, Hematocrit 31.8L , Mean Corpuscular Volume 96, Mean Corpuscular Hemoglobin 31.6H, Mean Corpuscular Hemoglobin Concent 32.8, Red Cell Distribution Width 13.9, Platelet Count 100L, Mean Platelet Volume 6.1L, Neutrophils (%) (Auto) 76.9H, Lymphocytes (%) (Auto) 12.7L, Monocytes (%) (Auto) 8.5, Eosinophils (%) (Auto) 1.4, Basophils (%) (Auto) 0.5, Sodium Level 141, Potassium Level 5.8H, Chloride Level 105, Carbon Dioxide Level 28, Anion Gap 8, Blood Urea Nitrogen 82H, Creatinine 6.8H, Estimat Glomerular Filtration Rate 8.1, Glucose Level 104, Calcium Level 7.8L Height (Feet): 5 Height (Inches): 9.00 Weight (Pounds): 147 General Appearance: WD/WN, alert Neck: supple Cardiovascular: regular rhythm Respiratory/Chest: lungs clear, normal breath sounds Abdomen: normal bowel sounds, guarding, tender Edema: no edema noted Arm (L), no edema noted Arm (R), no edema noted Leg (L), no edema noted Leg (R), no edema noted Pedal (L), no edema noted Pedal (R), no edema noted Generalized David Quinonez MD Oct 04, 2018 08:24
[2018-10-04] MEDS: HYDROcodone/Acetamin 10/325 tab ORAL PRN (08:44)
--- NOTE | 2018-10-04 09:28 | Urology Progress Note ---
Assessment/Plan Assessment/Plan 1. Lower urinary tract symptoms. 2. BPH. 3. End-stage renal disease, on hemodialysis. 4. Proteinuria. 5. Microhematuria. 6. Cystitis. 7. Renal atrophy. monitor clinically cont flomax add abx? Subjective Allergies: Coded Allergies: No Known Allergies (Unverified , 07/13/18) Subjective feels fair, still some difficulty voiding, constipated Objective Last 24 Hour Vital Signs Date Time Temp Pulse Resp B/P (MAP) Pulse Ox O2 Delivery O2 Flow Rate FiO2 10/04/18 08:00 97.6 66 20 106/58 (74) 94 10/04/18 04:00 98.8 66 17 108/62 (77) 93 10/04/18 00:00 99.5 68 18 112/66 (81) 93 10/03/18 21:00 Room Air 10/03/18 20:00 98.7 63 20 132/73 (92) 94 10/03/18 16:00 98.1 63 20 130/69 (89) 91 10/03/18 12:00 97.9 61 20 130/78 (95) 91 Intake and Output 10/03/18 10/04/18 19:00 07:00 Intake Total 480 ml 360 ml Balance 480 ml 360 ml Intake Oral 480 ml 360 ml # Voids 4 3 Current Medications Medications (Trade) Dose Ordered Sig/Isabel Route PRN Reason Start Time Stop Time Status Last Admin Dose Admin Acetaminophen (Tylenol) 500 mg Q6HR PRN ORAL Pain Scale (3-5) 10/02/18 23:15 11/01/18 23:14 Acetaminophen/ Hydrocodone Bitart ([place] 10/325) 1 tab Q6HR PRN ORAL For severe Pain 10/03/18 00:15 10/10/18 00:00 10/04/18 08:44 Acetaminophen/ Hydrocodone Bitart ([place] 5/325) 1 tab Q6H PRN ORAL For moderate Pain 10/03/18 00:15 10/09/18 23:14 Chlorhexidine Gluconate (Wendy-Hex 2%) 1 applic DAILY@1999 TOPIC 10/04/18 20:00 11/03/18 19:59 Citalopram Hydrobromide (celeXA) 20 mg DAILY ORAL 10/03/18 09:00 11/02/18 08:59 10/04/18 08:16 Heparin Sodium (Porcine) (Heparin 5000 units/ml) 5,000 units EVERY 12 HOURS SUBQ 10/03/18 21:00 11/02/18 08:59 10/04/18 08:19 Heparin Sodium (Porcine) (Heparin Sod 1000 units/ml 10ml) 2,000 unit ONCE PRN IV FOR HD ONLY 10/03/18 12:30 10/04/18 23:59 Iopamidol (Isovue-300 100ml) 100 ml NOW PRN INJ Radiology Procedure 10/02/18 19:00 Magnesium Hydroxide (Mom) 30 ml TID PRN ORAL Constipation 10/02/18 23:15 11/01/18 23:14 10/03/18 21:33 Morphine Sulfate (Morphine Sulfate) 1 mg Q4H PRN IVP For Pain 10/03/18 06:15 10/10/18 05:59 10/04/18 06:36 Ondansetron HCl (Zofran) 4 mg Q6H PRN IVP Nausea & Vomiting 10/03/18 12:00 11/02/18 11:59 10/04/18 06:35 Pantoprazole (Protonix) 40 mg DAILY IVP 10/03/18 09:00 11/02/18 08:59 10/04/18 08:19 Sodium Chloride 1,000 ml @ 500 mls/hr Q2H PRN IVLG sbp<90 during hd 10/03/18 12:30 10/04/18 23:59 Tamsulosin HCl (Flomax) 0.4 mg BEDTIME ORAL 10/03/18 21:00 11/02/18 20:59 10/03/18 21:07 Laboratory Tests 10/04/18 05:30: White Blood Count 9.1, Red Blood Count 3.30L, Hemoglobin 10.4L, Hematocrit 31.8L , Mean Corpuscular Volume 96, Mean Corpuscular Hemoglobin 31.6H, Mean Corpuscular Hemoglobin Concent 32.8, Red Cell Distribution Width 13.9, Platelet Count 100L, Mean Platelet Volume 6.1L, Neutrophils (%) (Auto) 76.9H, Lymphocytes (%) (Auto) 12.7L, Monocytes (%) (Auto) 8.5, Eosinophils (%) (Auto) 1.4, Basophils (%) (Auto) 0.5, Sodium Level 141, Potassium Level 5.8H, Chloride Level 105, Carbon Dioxide Level 28, Anion Gap 8, Blood Urea Nitrogen 82H, Creatinine 6.8H, Estimat Glomerular Filtration Rate 8.1, Glucose Level 104, Calcium Level 7.8L Height (Feet): 5 Height (Inches): 9.00 Weight (Pounds): 147 Objective exam stable Kahlil Yu MD Oct 04, 2018 09:28
[2018-10-04] MEDS ORDERED: HYDROmorphone 1mg/ml Carpuject IVP SCH (10:03)
--- NOTE | 2018-10-04 11:29 | Nephrology Progress Note ---
Assessment/Plan Plan Colitis ? Rx per GI/GS Cystitis - per ESRD + hyperkalemia - HD today. Subjective Subjective c/o severe abdominal pain. + constipation. Objective Objective Last 24 Hour Vital Signs Date Time Temp Pulse Resp B/P (MAP) Pulse Ox O2 Delivery O2 Flow Rate FiO2 10/04/18 10:39 97.6 10/04/18 09:14 97.6 10/04/18 09:00 Room Air 10/04/18 08:00 97.6 66 20 106/58 (74) 94 10/04/18 04:00 98.8 66 17 108/62 (77) 93 10/04/18 00:00 99.5 68 18 112/66 (81) 93 10/03/18 21:00 Room Air 10/03/18 20:00 98.7 63 20 132/73 (92) 94 10/03/18 16:00 98.1 63 20 130/69 (89) 91 10/03/18 12:00 97.9 61 20 130/78 (95) 91 Intake and Output 10/03/18 10/04/18 19:00 07:00 Intake Total 480 ml 360 ml Balance 480 ml 360 ml Intake Oral 480 ml 360 ml # Voids 4 3 Laboratory Tests 10/04/18 05:30: White Blood Count 9.1, Red Blood Count 3.30L, Hemoglobin 10.4L, Hematocrit 31.8L , Mean Corpuscular Volume 96, Mean Corpuscular Hemoglobin 31.6H, Mean Corpuscular Hemoglobin Concent 32.8, Red Cell Distribution Width 13.9, Platelet Count 100L, Mean Platelet Volume 6.1L, Neutrophils (%) (Auto) 76.9H, Lymphocytes (%) (Auto) 12.7L, Monocytes (%) (Auto) 8.5, Eosinophils (%) (Auto) 1.4, Basophils (%) (Auto) 0.5, Sodium Level 141, Potassium Level 5.8H, Chloride Level 105, Carbon Dioxide Level 28, Anion Gap 8, Blood Urea Nitrogen 82H, Creatinine 6.8H, Estimat Glomerular Filtration Rate 8.1, Glucose Level 104, Calcium Level 7.8L Height (Feet): 5 Height (Inches): 9.00 Weight (Pounds): 149 Objective Cachectic. CV RR Lungs CTA. Abd Soft, diffusely tender. BS + E no CCE. iRckey Cazares MD Oct 04, 2018 11:29
[2018-10-04] MEDS: Zosyn 2.25 gm in D5W 55ml IV SCH ×2 (13:40→21:41)
[2018-10-04] MEDS ORDERED: Piperacillin/Tazobactam 3.375 GM in D5W 110 ML IVPB SCH (14:00)
--- NOTE | 2018-10-04 16:01 | Consultation ---
History of Present Illness General Date patient seen: Oct 04, 2018 Chief Complaint: Abdominal Pain Reason for Consultation: abdominal pain Present Illness HPI 68 year old male presented with complaints of worsening abdominal pain for a few days. no n/v/f/c. labs okay. CT with possible colitis. surgery called to evaluate. patient seen, chart reviewed, patient examined. states mildly better. asking for more pain meds. Allergies: Coded Allergies: No Known Allergies (Unverified , 07/13/18) Medication History Scheduled Citalopram Hydrobromide* (Celexa*), 20 MG ORAL DAILY, (Reported) Patient History History Provided By: Patient, Medical Record, PMD Healthcare decision maker Resuscitation status Full Code Advanced Directive on File Past Medical/Surgical History Past Medical/Surgical History: (1) ESRD (end stage renal disease) on dialysis (2) Abdominal pain (3) Constipation (4) Anemia (5) Dialysis complication Review of Systems Constitutional: Denies: no symptoms, see HPI, chills, sweats, fever, malaise, weakness, other Eye: Denies: no symptoms, see HPI, eye pain, blurred vision, tearing, double vision, nose pain, nose congestion, acuity changes, discharge, other ENT: Denies: no symptoms, see HPI, ear pain, ear discharge, nose pain, nose congestion, throat pain, throat swelling, mouth pain, hearing loss, nasal discharge, other Respiratory: Denies: no symptoms, see HPI, cough, orthopnea, shortness of breath, stridor, wheezing, COUCH, sputum, other Cardiovascular: Denies: no symptoms, see HPI, chest pain, edema, palpitations, syncope, PND, other Gastrointestinal: Reports: abdominal pain, constipation Genitourinary: Denies: no symptoms, see HPI, discharge, dysuria, frequency, hematuria, pain, retention, incontinence, urgency, vag bleed/dc, other Musculoskeletal: Denies: no symptoms, see HPI, back pain, gout, joint pain, joint swelling, muscle pain, muscle stiffness, other Skin: Denies: no symptoms, see HPI, rash, change in color, change in hair/nails , dryness, lesions, other Psychiatric: Denies: no symptoms, see HPI, prior hx, anxiety, depressed feelings, emotional problems, SI, HI, hallucinations, other Neurological: Denies: no symptoms, see HPI, headache, numbness, paresthesia, seizure, tingling, tremors, focal weakness, syncope, dizziness, other Endocrine: Denies: no symptoms, see HPI, excessive sweating, flushing, intolerance to temperature, increased thirst, increased urine, unexplained weight loss, other Hematologic/Lymphatic: Denies: no symptoms, see HPI, anemia, blood clots, easy bleeding, easy bruising, swollen glands, diathesis, other All Other Systems: negative except mentioned in HPI Physical Exam General Appearance: no apparent distress, alert Lines, tubes and drains: peripheral HEENT: mucous membranes moist Neck: normal inspection Respiratory/Chest: normal breath sounds Cardiovascular/Chest: normal rate, regular rhythm Abdomen: normal bowel sounds, soft, no organomegaly, no mass, tender Extremities: normal inspection Skin Exam: warm/dry Neurologic: alert, responsive Last 24 Hour Vital Signs Date Time Temp Pulse Resp B/P (MAP) Pulse Ox O2 Delivery O2 Flow Rate FiO2 10/04/18 12:00 97.9 48 20 148/67 (94) 98 10/04/18 10:39 97.6 10/04/18 09:14 97.6 10/04/18 09:00 Room Air 10/04/18 08:00 97.6 66 20 106/58 (74) 94 10/04/18 04:00 98.8 66 17 108/62 (77) 93 10/04/18 00:00 99.5 68 18 112/66 (81) 93 10/03/18 21:00 Room Air 10/03/18 20:00 98.7 63 20 132/73 (92) 94 10/03/18 16:00 98.1 63 20 130/69 (89) 91 Intake and Output 10/03/18 10/04/18 19:00 07:00 Intake Total 480 ml 360 ml Balance 480 ml 360 ml Intake Oral 480 ml 360 ml # Voids 4 3 Laboratory Tests Test 10/04/18 05:30 White Blood Count 9.1 K/UL (4.8-10.8) Red Blood Count 3.30 M/UL (4.70-6.10) L Hemoglobin 10.4 G/DL (14.2-18.0) L Hematocrit 31.8 % (42.0-52.0) L Mean Corpuscular Volume 96 FL (80-99) Mean Corpuscular Hemoglobin 31.6 PG (27.0-31.0) H Mean Corpuscular Hemoglobin Concent 32.8 G/DL (32.0-36.0) Red Cell Distribution Width 13.9 % (11.6-14.8) Platelet Count 100 K/UL (150-450) L Mean Platelet Volume 6.1 FL (6.5-10.1) L Neutrophils (%) (Auto) 76.9 % (45.0-75.0) H Lymphocytes (%) (Auto) 12.7 % (20.0-45.0) L Monocytes (%) (Auto) 8.5 % (1.0-10.0) Eosinophils (%) (Auto) 1.4 % (0.0-3.0) Basophils (%) (Auto) 0.5 % (0.0-2.0) Sodium Level 141 MMOL/L (136-145) Potassium Level 5.8 MMOL/L (3.5-5.1) H Chloride Level 105 MMOL/L (98-107) Carbon Dioxide Level 28 MMOL/L (21-32) Anion Gap 8 mmol/L (5-15) Blood Urea Nitrogen 82 mg/dL (7-18) H Creatinine 6.8 MG/DL (0.55-1.30) H Estimat Glomerular Filtration Rate 8.1 mL/min (>60) Glucose Level 104 MG/DL (74-106) Calcium Level 7.8 MG/DL (8.5-10.1) L Height (Feet): 5 Height (Inches): 9.00 Weight (Pounds): 149 Medications Current Medications Medications (Trade) Dose Ordered Sig/Isabel Route PRN Reason Start Time Stop Time Status Last Admin Dose Admin Acetaminophen (Tylenol) 500 mg Q6HR PRN ORAL Pain Scale (3-5) 10/02/18 23:15 11/01/18 23:14 Acetaminophen/ Hydrocodone Bitart ([place] 10/325) 1 tab Q6HR PRN ORAL For severe Pain 10/03/18 00:15 10/10/18 00:00 10/04/18 08:44 Acetaminophen/ Hydrocodone Bitart ([place] 5/325) 1 tab Q6H PRN ORAL For moderate Pain 10/03/18 00:15 2/4/19 23:14 Chlorhexidine Gluconate (Wendy-Hex 2%) 1 applic DAILY@2000 TOPIC 10/04/18 20:00 11/03/18 19:59 Citalopram Hydrobromide (celeXA) 20 mg DAILY ORAL 10/03/18 09:00 11/02/18 08:59 10/04/18 08:16 Heparin Sodium (Porcine) (Heparin 5000 units/ml) 5,000 units EVERY 12 HOURS SUBQ 10/03/18 21:00 11/02/18 08:59 10/04/18 08:19 Heparin Sodium (Porcine) (Heparin Sod 1000 units/ml 10ml) 2,000 unit ONCE PRN IV FOR HD ONLY 10/03/18 12:30 10/04/18 23:59 Iopamidol (Isovue-300 100ml) 100 ml NOW PRN INJ Radiology Procedure 10/02/18 19:00 Magnesium Hydroxide (Mom) 30 ml TID PRN ORAL Constipation 10/02/18 23:15 11/01/18 23:14 10/03/18 21:33 Morphine Sulfate (Morphine Sulfate) 1 mg Q4H PRN IVP For Pain 10/03/18 06:15 10/10/18 05:59 10/04/18 06:36 Ondansetron HCl (Zofran) 4 mg Q6H PRN IVP Nausea & Vomiting 10/03/18 12:00 11/02/18 11:59 10/04/18 06:35 Pantoprazole (Protonix) 40 mg DAILY IVP 10/03/18 09:00 11/02/18 08:59 10/04/18 08:19 Piperacillin Sod/ Tazobactam Sod 2.25 gm/Dextrose 55 ml @ 110 mls/hr Q8HR IV 10/04/18 14:00 10/09/18 13:59 10/04/18 13:40 Sodium Chloride 1,000 ml @ 500 mls/hr Q2H PRN IVLG sbp<90 during hd 10/03/18 12:30 10/04/18 23:59 Tamsulosin HCl (Flomax) 0.4 mg BEDTIME ORAL 10/03/18 21:00 11/02/18 20:59 10/03/18 21:07 Assessment/Plan Problem List: (1) Abdominal pain Assessment & Plan: abdominal pain no n/v/f/c exam with abd tenderness labs nml CT noted Possible sigmoid and rectal wall thickening, could indicate colitis/proctitis. Correlate with clinical findings Mild bladder wall thickening and perivesical fat infiltration, concerning for cystitis. Correlate with clinical findings Atrophic bilateral kidneys, also described on prior ultrasound Subcentimeter low-attenuation lesions in the kidneys, too small to characterize , most likely benign cortical cysts. No further follow-up necessary likely mild colitis okay for diet IV abx will follow clinically with serial exams no acute surgical intervention planned thank you ICD Codes: R10.9 - Unspecified abdominal pain SNOMED: 49684987 Qualifiers: Qualified Codes: R10.9 - Unspecified abdominal pain Status: stable EribertoLatricia fariaya Oct 04, 2018 16:01
[2018-10-04] MEDS: Milk of Magnesia 30ml Ud ORAL PRN (17:00)
--- NOTE | 2018-10-04 18:42 | Cardiology Report ---
APPROVED REPORT EKG Measurement Heart [id number] Normal sinus rhythm Normal ECG
[2018-10-04] MEDS ORDERED: Sorbitol Solution UD 30ml ORAL SCH (18:45)
--- NOTE | 2018-10-04 18:50 | General Progress Note ---
Assessment/Plan Assessment/Plan GI CONSULT Dictated Assessment - acute lower abd pain x 1 week - no BM x 1 week - chronic constipation - Anemia - CRF / HD Recommendations - downgrade diet to clear liquid - laxative trial - follow Sx and exam - Check OB - Check lactate - Eventual colonoscopy (OK as outpatient) Thank you Estefani Clemente MD Subjective Allergies: Coded Allergies: No Known Allergies (Unverified , 07/13/18) Objective Last 24 Hour Vital Signs Date Time Temp Pulse Resp B/P (MAP) Pulse Ox O2 Delivery O2 Flow Rate FiO2 10/04/18 18:03 67 106/70 (82) 10/04/18 17:31 98.6 10/04/18 16:00 98.6 60 18 87/60 (69) 96 10/04/18 12:00 97.9 48 20 148/67 (94) 98 10/04/18 10:39 97.6 10/04/18 09:14 97.6 10/04/18 09:00 Room Air 10/04/18 08:00 97.6 66 20 106/58 (74) 94 10/04/18 04:00 98.8 66 17 108/62 (77) 93 10/04/18 00:00 99.5 68 18 112/66 (81) 93 10/03/18 21:00 Room Air 10/03/18 20:00 98.7 63 20 132/73 (92) 94 Intake and Output 10/03/18 10/04/18 19:00 07:00 Intake Total 480 ml 360 ml Balance 480 ml 360 ml Intake Oral 480 ml 360 ml # Voids 4 3 Laboratory Tests 10/04/18 05:30: White Blood Count 9.1, Red Blood Count 3.30L, Hemoglobin 10.4L, Hematocrit 31.8L , Mean Corpuscular Volume 96, Mean Corpuscular Hemoglobin 31.6H, Mean Corpuscular Hemoglobin Concent 32.8, Red Cell Distribution Width 13.9, Platelet Count 100L, Mean Platelet Volume 6.1L, Neutrophils (%) (Auto) 76.9H, Lymphocytes (%) (Auto) 12.7L, Monocytes (%) (Auto) 8.5, Eosinophils (%) (Auto) 1.4, Basophils (%) (Auto) 0.5, Sodium Level 141, Potassium Level 5.8H, Chloride Level 105, Carbon Dioxide Level 28, Anion Gap 8, Blood Urea Nitrogen 82H, Creatinine 6.8H, Estimat Glomerular Filtration Rate 8.1, Glucose Level 104, Calcium Level 7.8L Height (Feet): 5 Height (Inches): 9.00 Weight (Pounds): 149 Estefani Clemente MD Oct 04, 2018 18:50
[2018-10-04] MEDS: Dyna-Hex 2% Top Sol 2oz TOPIC SCH (20:24)
[2018-10-04] MEDS: Tamsulosin 0.4mg cap ORAL SCH (20:25)
--- NOTE | 2018-10-04 21:00 | Consultation ---
DATE OF CONSULTATION: 10/04/2018 GASTROENTEROLOGY CONSULTATION CHIEF COMPLAINT: I was asked to see this patient by Dr. David Quinonez for evaluation of abdominal pain and an abnormal CT scan. HISTORY OF PRESENT ILLNESS: The patient is a 68-year-old white man, who was in his usual state of health until about a week ago when he started noticing lower abdominal pain in the pelvic area. He points to the central part of his lower abdomen. The patient also noted to stop having bowel movement since then and stated that he has not had a bowel movement for about a week. He does have some chronic constipation requiring intermittent doses of laxatives, but this degree of constipation is new for him. He had some vomiting yesterday, but otherwise, he has had no nausea or vomiting. He presented to emergency room where a CT scan was done showing some borderline equivocal thickening of the descending and sigmoid colon. Surgery has seen the patient and according to the patient, the rectal exam did not show any evidence of stool impaction. Milk of magnesia dose has been given, which has not worked yet. The patient denies any hematochezia. He has never had a colonoscopy and states he has been talking to his primary physician as an outpatient to have that done, but has not been performed yet. The patient does have renal failure. He is on dialysis for months now. He makes very little urine. PAST MEDICAL HISTORY: 1. History of renal failure, on dialysis. 2. History of right inguinal hernia repair. 3. Chronic constipation. 4. History of depression. FAMILY HISTORY: Noncontributory. SOCIAL HISTORY: The patient lives at home. He does not smoke or drink alcohol. REVIEW OF SYSTEMS: Otherwise negative. PHYSICAL EXAMINATION: GENERAL: A thin pleasant white man, seen in his room. HEENT: Normocephalic and atraumatic. Sclerae anicteric. Oropharynx clear. NECK: Supple. CHEST: Clear to auscultation. CARDIOVASCULAR: Revealed a regular rate. ABDOMEN: Soft with tenderness in the lower abdomen, which seemed to be less when the patient is distracted. EXTREMITIES: Revealed no edema. LABORATORY DATA: Noted. ASSESSMENT: This patient presents with abdominal pain of unclear etiology. The CT scan results are very borderline with respect to colonic findings and ameliorative and mild thickening of the left colon is typically nonspecific. The patient has not had a colonoscopy and therefore, he will need an eventual colonoscopy. He was strongly advised to have this done as a cancer prevention technique. In the meantime; however, he was given some laxatives in order to make his bowels move. He has been advised to hold off on any narcotic use while he is being treated for constipation. I will check his stools for occult blood to rule out any significant gastrointestinal pathology. Ischemic colitis would obviously be part of the differential and therefore, a lactate level will also be drawn. RECOMMENDATIONS: 1. Downgrade diet to clear liquids. 2. Laxatives. 3. Check lactate level. 4. The patient refused Dulcolax suppository. 5. Follow laboratory parameters and exam. 6. Minimize narcotics. Thank you for asking me to participate in the care of this patient. Estefani Clemente M.D. DR: VIVIAN JOB#: [id number] CC:
[2018-10-05] VITALS (8 sets, daily range): BP systolic 96–145; BP diastolic 57–78
[2018-10-05] MEDS: Morphine Sulfate 4mg/ml Inj (IV/IM USE ONLY) IVP PRN ×3 (02:20→22:21)
[2018-10-05] MEDS: Milk of Magnesia 30ml Ud ORAL PRN (02:24)
[2018-10-05] MEDS: Zosyn 2.25 gm in D5W 55ml IV SCH ×3 (05:26→22:04)
--- NOTE | 2018-10-05 07:28 | General Progress Note ---
Assessment/Plan Problem List: (1) Dialysis complication ICD Codes: T82.9XXA - Unspecified complication of cardiac and vascular prosthetic device, implant and graft, initial encounter SNOMED: 12017875, 76808252, 924139808 (2) Anemia ICD Codes: D64.9 - Anemia, unspecified SNOMED: 771386040 (3) Abdominal pain ICD Codes: R10.9 - Unspecified abdominal pain SNOMED: 45979293 Qualifiers: Qualified Codes: R10.9 - Unspecified abdominal pain (4) Constipation ICD Codes: K59.00 - Constipation, unspecified SNOMED: 57227772 Qualifiers: Qualified Codes: K59.00 - Constipation, unspecified (5) ESRD (end stage renal disease) on dialysis ICD Codes: N18.6 - End stage renal disease; Z99.2 - Dependence on renal dialysis SNOMED: 178665067 Status: stable, progressing Assessment/Plan gi and surgery eval appreciated bowel regime mobilize pain rx HD per renal Subjective ROS Limited/Unobtainable: No Constitutional: Reports: malaise, weakness HEENT: Reports: no symptoms Cardiovascular: Reports: no symptoms Respiratory: Reports: no symptoms Gastrointestinal/Abdominal: Reports: abdominal pain, constipated Genitourinary: Reports: no symptoms Neurologic/Psychiatric: Reports: no symptoms Endocrine: Reports: no symptoms Hematologic/Lymphatic: Reports: no symptoms Allergies: Coded Allergies: No Known Allergies (Unverified , 07/13/18) All Systems: reviewed and negative except above Subjective less abd pain today. not resolved. passing gas but no bowel movements yet. GI and surgery appreciated Objective Last 24 Hour Vital Signs Date Time Temp Pulse Resp B/P (MAP) Pulse Ox O2 Delivery O2 Flow Rate FiO2 10/05/18 04:00 98.2 65 18 103/65 (78) 95 10/05/18 00:00 98.1 62 16 113/57 (75) 96 10/04/18 21:00 Room Air 10/04/18 20:00 98.3 64 18 115/65 (82) 96 10/04/18 18:03 67 106/70 (82) 10/04/18 17:31 98.6 10/04/18 16:00 98.6 60 18 87/60 (69) 96 10/04/18 12:00 97.9 48 20 148/67 (94) 98 10/04/18 10:39 97.6 10/04/18 09:14 97.6 10/04/18 09:00 Room Air 10/04/18 08:00 97.6 66 20 106/58 (74) 94 Intake and Output 10/04/18 10/05/18 19:00 07:00 Intake Total 840 ml 350 ml Balance 840 ml 350 ml Intake Oral 840 ml 240 ml IV Total 110 ml # Voids 2 2 Laboratory Tests 10/04/18 19:15: Lactic Acid Level 0.90 Height (Feet): 5 Height (Inches): 9.00 Weight (Pounds): 149 Objective General Appearance: WD/WN, alert Neck: supple Cardiovascular: regular rhythm Respiratory/Chest: lungs clear, normal breath sounds Abdomen: normal bowel sounds, guarding, tender Edema: no edema noted Arm (L), no edema noted Arm (R), no edema noted Leg (L), no edema noted Leg (R), no edema noted Pedal (L), no edema noted Pedal (R), no edema noted Generalized David Quinonez MD Oct 05, 2018 07:28
[2018-10-05 08:37] LABS: BASOPHILS % (AUTO) 0.6 % (0.0-2.0); EOSINOPHILS % (AUTO) 1.8 % (0.0-3.0); HEMATOCRIT 33.7 % (42.0-52.0); HEMOGLOBIN 10.9 G/DL (14.2-18.0); LYMPHOCYTES % (AUTO) 14.3 % (20.0-45.0); MEAN CORPUSCULAR VOLUME 98 FL (80-99); MONOCYTES % (AUTO) 8.1 % (1.0-10.0); NEUTROPHILS % (AUTO) 75.1 % (45.0-75.0); PLATELET COUNT 119 K/UL (150-450); RED BLOOD COUNT 3.46 M/UL (4.70-6.10); RED CELL DISTRIBUTION WIDTH 14.2 % (11.6-14.8); WHITE BLOOD COUNT 7.4 K/UL (4.8-10.8)
[2018-10-05] MEDS: Citalopram Hydrobromide 10mg Tab ORAL SCH (08:55)
[2018-10-05] MEDS: Pantoprazole Inj IVP SCH (08:56)
[2018-10-05] MEDS: Heparin 5000 units/ml inj SUBQ SCH ×2 (08:59→22:07)
[2018-10-05 09:15] LABS: ALANINE AMINOTRANSFERASE 17 U/L (12-78); ALBUMIN/GLOBULIN RATIO 0.7 (1.0-2.7); ALKALINE PHOSPHATASE 58 U/L (46-116); AMYLASE 71 U/L (25-115); ANION GAP 7 mmol/L (5-15); ASPARTATE AMINO TRANSFERASE 14 U/L (15-37); BILIRUBIN,TOTAL 0.5 MG/DL (0.2-1.0); BLOOD UREA NITROGEN 54 mg/dL (7-18); CALCIUM 8.6 MG/DL (8.5-10.1); CARBON DIOXIDE 30 MMOL/L (21-32); CHLORIDE 104 MMOL/L (98-107); CREATININE 5.5 MG/DL (0.55-1.30); SODIUM 141 MMOL/L (136-145)
--- NOTE | 2018-10-05 09:26 | Urology Progress Note ---
Assessment/Plan Assessment/Plan 1. Lower urinary tract symptoms. 2. BPH. 3. End-stage renal disease, on hemodialysis. 4. Proteinuria. 5. Microhematuria. 6. Cystitis. 7. Renal atrophy. monitor clinically cont flomax abx added Subjective Allergies: Coded Allergies: No Known Allergies (Unverified , 07/13/18) Subjective feels fair, still some difficulty voiding, constipated Objective Last 24 Hour Vital Signs Date Time Temp Pulse Resp B/P (MAP) Pulse Ox O2 Delivery O2 Flow Rate FiO2 10/05/18 08:54 65 104/74 (84) 10/05/18 08:37 99.5 64 16 96/58 (71) 96 64 10/05/18 08:00 98.1 50 16 145/71 (95) 96 10/05/18 04:00 98.2 65 18 103/65 (78) 95 10/05/18 00:00 98.1 62 16 113/57 (75) 96 10/04/18 21:00 Room Air 10/04/18 20:00 98.3 64 18 115/65 (82) 96 10/04/18 18:03 67 106/70 (82) 10/04/18 17:31 98.6 10/04/18 16:00 98.6 60 18 87/60 (69) 96 10/04/18 12:00 97.9 48 20 148/67 (94) 98 10/04/18 10:39 97.6 Intake and Output 10/04/18 10/05/18 19:00 07:00 Intake Total 840 ml 350 ml Balance 840 ml 350 ml Intake Oral 840 ml 240 ml IV Total 110 ml # Voids 2 2 Current Medications Medications (Trade) Dose Ordered Sig/Isabel Route PRN Reason Start Time Stop Time Status Last Admin Dose Admin Acetaminophen (Tylenol) 500 mg Q6HR PRN ORAL Pain Scale (3-5) 10/02/18 23:15 11/01/18 23:14 Acetaminophen/ Hydrocodone Bitart ([place] 10/325) 1 tab Q6HR PRN ORAL For severe Pain 10/03/18 00:15 10/10/18 00:00 10/04/18 08:44 Acetaminophen/ Hydrocodone Bitart ([place] 5/325) 1 tab Q6H PRN ORAL For moderate Pain 10/03/18 00:15 10/09/18 23:14 Bisacodyl (Dulcolax) 10 mg DAILYPRN PRN RECTAL Constipation 10/04/18 17:00 11/03/18 16:59 Chlorhexidine Gluconate ([place]-Hex 2%) 1 applic DAILY@2000 TOPIC 10/04/18 20:00 11/03/18 19:59 10/04/18 20:24 Citalopram Hydrobromide (celeXA) 20 mg DAILY ORAL 10/03/18 09:00 11/02/18 08:59 10/05/18 08:55 Heparin Sodium (Porcine) (Heparin 5000 units/ml) 5,000 units EVERY 12 HOURS SUBQ 10/03/18 21:00 11/02/18 08:59 10/05/18 08:59 Iopamidol (Isovue-300 100ml) 100 ml NOW PRN INJ Radiology Procedure 10/02/18 19:00 Magnesium Hydroxide (Mom) 30 ml TID PRN ORAL Constipation 10/02/18 23:15 11/01/18 23:14 10/05/18 02:24 Morphine Sulfate (Morphine Sulfate) 1 mg Q4H PRN IVP For Pain 10/03/18 06:15 10/10/18 05:59 10/05/18 08:56 Ondansetron HCl (Zofran) 4 mg Q6H PRN IVP Nausea & Vomiting 10/03/18 12:00 11/02/18 11:59 10/05/18 09:06 Pantoprazole (Protonix) 40 mg DAILY IVP 10/03/18 09:00 11/02/18 08:59 10/05/18 08:56 Piperacillin Sod/ Tazobactam Sod 2.25 gm/Dextrose 55 ml @ 110 mls/hr Q8HR IV 10/04/18 14:00 10/09/18 13:59 10/05/18 05:26 Sorbitol (Sorbitol) 60 ml ONCE ORAL 10/05/18 09:30 10/05/18 10:30 10/05/18 08:56 Tamsulosin HCl (Flomax) 0.4 mg BEDTIME ORAL 10/03/18 21:00 11/02/18 20:59 10/04/18 20:25 Laboratory Tests 10/04/18 19:15: Lactic Acid Level 0.90 10/05/18 07:13: White Blood Count 7.4, Red Blood Count 3.46L, Hemoglobin 10.9L, Hematocrit 33.7L , Mean Corpuscular Volume 98, Mean Corpuscular Hemoglobin 31.5H, Mean Corpuscular Hemoglobin Concent 32.3, Red Cell Distribution Width 14.2, Platelet Count 119L, Mean Platelet Volume 4.6L, Neutrophils (%) (Auto) 75.1H, Lymphocytes (%) (Auto) 14.3L, Monocytes (%) (Auto) 8.1, Eosinophils (%) (Auto) 1.8, Basophils (%) (Auto) 0.6, Erythrocyte Sedimentation Rate [Pending], Prothrombin Time 10.4, Prothromb Time International Ratio 1.0, Activated Partial Thromboplast Time 33, Sodium Level 141, Potassium Level 5.0, Chloride Level 104, Carbon Dioxide Level 30, Anion Gap 7, Blood Urea Nitrogen 54H, Creatinine 5.5H, Estimat Glomerular Filtration Rate 10.3, Glucose Level 108H, Calcium Level 8.6, Total Bilirubin 0.5, Aspartate Amino Transf (AST/SGOT) 14L, Alanine Aminotransferase (ALT/SGPT) 17, Alkaline Phosphatase 58, C-Reactive Protein, Quantitative 11.8H, Total Protein 7.1, Albumin 3.0L, Globulin 4.1, Albumin/Globulin Ratio 0.7L, Amylase Level 71, Lipase 94 Height (Feet): 5 Height (Inches): 9.00 Weight (Pounds): 149 Objective exam stable Kahlil Yu MD Oct 05, 2018 09:26
[2018-10-05] MEDS ORDERED: Sorbitol Solution UD 30ml ORAL SCH (09:30)
--- NOTE | 2018-10-05 11:49 | Nephrology Progress Note ---
Assessment/Plan Plan Colitis ? Rx per GI/GS Cystitis - per ESRD + hyperkalemia - HD tomorrow. Subjective Subjective c/o severe abdominal pain. + constipation. Objective Objective Last 24 Hour Vital Signs Date Time Temp Pulse Resp B/P (MAP) Pulse Ox O2 Delivery O2 Flow Rate FiO2 10/05/18 09:26 99.5 10/05/18 09:00 Room Air 10/05/18 08:54 65 104/74 (84) 10/05/18 08:37 99.5 64 16 96/58 (71) 96 64 10/05/18 08:00 98.1 50 16 145/71 (95) 96 10/05/18 04:00 98.2 65 18 103/65 (78) 95 10/05/18 00:00 98.1 62 16 113/57 (75) 96 10/04/18 21:00 Room Air 10/04/18 20:00 98.3 64 18 115/65 (82) 96 10/04/18 18:03 67 106/70 (82) 10/04/18 16:00 98.6 60 18 87/60 (69) 96 10/04/18 12:00 97.9 48 20 148/67 (94) 98 Intake and Output 10/04/18 10/05/18 19:00 07:00 Intake Total 840 ml 350 ml Balance 840 ml 350 ml Intake Oral 840 ml 240 ml IV Total 110 ml # Voids 2 2 Laboratory Tests 10/04/18 19:15: Lactic Acid Level 0.90 10/05/18 07:13: White Blood Count 7.4, Red Blood Count 3.46L, Hemoglobin 10.9L, Hematocrit 33.7L , Mean Corpuscular Volume 98, Mean Corpuscular Hemoglobin 31.5H, Mean Corpuscular Hemoglobin Concent 32.3, Red Cell Distribution Width 14.2, Platelet Count 119L, Mean Platelet Volume 4.6L, Neutrophils (%) (Auto) 75.1H, Lymphocytes (%) (Auto) 14.3L, Monocytes (%) (Auto) 8.1, Eosinophils (%) (Auto) 1.8, Basophils (%) (Auto) 0.6, Erythrocyte Sedimentation Rate 53H, Prothrombin Time 10.4, Prothromb Time International Ratio 1.0, Activated Partial Thromboplast Time 33, Sodium Level 141, Potassium Level 5.0, Chloride Level 104 , Carbon Dioxide Level 30, Anion Gap 7, Blood Urea Nitrogen 54H, Creatinine 5.5H , Estimat Glomerular Filtration Rate 10.3, Glucose Level 108H, Calcium Level 8.6 , Total Bilirubin 0.5, Aspartate Amino Transf (AST/SGOT) 14L, Alanine Aminotransferase (ALT/SGPT) 17, Alkaline Phosphatase 58, C-Reactive Protein, Quantitative 11.8H, Total Protein 7.1, Albumin 3.0L, Globulin 4.1, Albumin/ Globulin Ratio 0.7L, Amylase Level 71, Lipase 94 10/05/18 10:07: Stool Occult Blood Negative Height (Feet): 5 Height (Inches): 9.00 Weight (Pounds): 149 Objective Cachectic. CV RR Lungs CTA. Abd Soft, diffusely tender. BS + E no CCE. Rickey Cazares MD Oct 05, 2018 11:49
[2018-10-05] MEDS: HYDROcodone/Acetamin 10/325 tab ORAL PRN ×2 (12:10→22:05)
--- NOTE | 2018-10-05 12:54 | Surgery Progress Note ---
Surgery Progress Note Subjective Additional Comments pain improving. had loose BM Objective Last 24 Hour Vital Signs Date Time Temp Pulse Resp B/P (MAP) Pulse Ox O2 Delivery O2 Flow Rate FiO2 10/05/18 12:00 98.3 52 17 140/73 (95) 96 10/05/18 09:26 99.5 10/05/18 09:00 Room Air 10/05/18 08:54 65 104/74 (84) 10/05/18 08:37 99.5 64 16 96/58 (71) 96 64 10/05/18 08:00 98.1 50 16 145/71 (95) 96 10/05/18 04:00 98.2 65 18 103/65 (78) 95 10/05/18 00:00 98.1 62 16 113/57 (75) 96 10/04/18 21:00 Room Air 10/04/18 20:00 98.3 64 18 115/65 (82) 96 10/04/18 18:03 67 106/70 (82) 10/04/18 16:00 98.6 60 18 87/60 (69) 96 I&O Intake and Output 10/04/18 10/05/18 19:00 07:00 Intake Total 840 ml 350 ml Balance 840 ml 350 ml Intake Oral 840 ml 240 ml IV Total 110 ml # Voids 2 2 Drains: none Cardiovascular: RSR Respiratory: clear Abdomen: soft, non-tender, present bowel sounds, non-distended Extremities: other Laboratory Tests Test 10/04/18 19:15 10/05/18 07:13 10/05/18 10:07 Lactic Acid Level 0.90 mmol/L (0.4-2.0) White Blood Count 7.4 K/UL (4.8-10.8) Red Blood Count 3.46 M/UL (4.70-6.10) L Hemoglobin 10.9 G/DL (14.2-18.0) L Hematocrit 33.7 % (42.0-52.0) L Mean Corpuscular Volume 98 FL (80-99) Mean Corpuscular Hemoglobin 31.5 PG (27.0-31.0) H Mean Corpuscular Hemoglobin Concent 32.3 G/DL (32.0-36.0) Red Cell Distribution Width 14.2 % (11.6-14.8) Platelet Count 119 K/UL (150-450) L Mean Platelet Volume 4.6 FL (6.5-10.1) L Neutrophils (%) (Auto) 75.1 % (45.0-75.0) H Lymphocytes (%) (Auto) 14.3 % (20.0-45.0) L Monocytes (%) (Auto) 8.1 % (1.0-10.0) Eosinophils (%) (Auto) 1.8 % (0.0-3.0) Basophils (%) (Auto) 0.6 % (0.0-2.0) Erythrocyte Sedimentation Rate 53 MM/HR (0-20) H Prothrombin Time 10.4 SEC (9.30-11.50) Prothromb Time International Ratio 1.0 (0.9-1.1) Activated Partial Thromboplast Time 33 SEC (23-33) Sodium Level 141 MMOL/L (136-145) Potassium Level 5.0 MMOL/L (3.5-5.1) Chloride Level 104 MMOL/L (98-107) Carbon Dioxide Level 30 MMOL/L (21-32) Anion Gap 7 mmol/L (5-15) Blood Urea Nitrogen 54 mg/dL (7-18) H Creatinine 5.5 MG/DL (0.55-1.30) H Estimat Glomerular Filtration Rate 10.3 mL/min (>60) Glucose Level 108 MG/DL (74-106) H Calcium Level 8.6 MG/DL (8.5-10.1) Total Bilirubin 0.5 MG/DL (0.2-1.0) Aspartate Amino Transf (AST/SGOT) 14 U/L (15-37) L Alanine Aminotransferase (ALT/SGPT) 17 U/L (12-78) Alkaline Phosphatase 58 U/L (46-116) C-Reactive Protein, Quantitative 11.8 mg/dL (0.00-0.90) H Total Protein 7.1 G/DL (6.4-8.2) Albumin 3.0 G/DL (3.4-5.0) L Globulin 4.1 g/dL Albumin/Globulin Ratio 0.7 (1.0-2.7) L Amylase Level 71 U/L (25-115) Lipase 94 U/L (73-393) Stool Occult Blood Negative (NEGATIVE) Plan Problems: (1) Abdominal pain Assessment & Plan: abdominal pain no n/v/f/c exam with abd tenderness labs nml CT noted Possible sigmoid and rectal wall thickening, could indicate colitis/proctitis. Correlate with clinical findings Mild bladder wall thickening and perivesical fat infiltration, concerning for cystitis. Correlate with clinical findings Atrophic bilateral kidneys, also described on prior ultrasound Subcentimeter low-attenuation lesions in the kidneys, too small to characterize , most likely benign cortical cysts. No further follow-up necessary likely mild colitis okay for diet IV abx will follow clinically with serial exams no acute surgical intervention planned thank you Alan Pineda Oct 05, 2018 12:54
--- NOTE | 2018-10-05 19:46 | General Progress Note ---
Assessment/Plan Assessment/Plan Assessment - acute lower abd pain x 1 week - no BM x 1 week - chronic constipation - Anemia - CRF / HD Recommendations - clear liquid until BM - laxative trial, repeat - follow Sx and exam - Check OB - Check lactate - Eventual colonoscopy (OK as outpatient) Subjective Allergies: Coded Allergies: No Known Allergies (Unverified , 07/13/18) Subjective still c/o lower abd pain no BM at time of my am visit gets narcotics by request no vomiting Objective Last 24 Hour Vital Signs Date Time Temp Pulse Resp B/P (MAP) Pulse Ox O2 Delivery O2 Flow Rate FiO2 10/05/18 16:29 98.0 10/05/18 16:00 98.0 54 18 138/72 (94) 97 10/05/18 12:40 99.5 10/05/18 12:00 98.3 52 17 140/73 (95) 96 10/05/18 09:26 99.5 10/05/18 09:00 Room Air 10/05/18 08:54 65 104/74 (84) 10/05/18 08:37 99.5 64 16 96/58 (71) 96 64 10/05/18 08:00 98.1 50 16 145/71 (95) 96 10/05/18 04:00 98.2 65 18 103/65 (78) 95 10/05/18 00:00 98.1 62 16 113/57 (75) 96 10/04/18 21:00 Room Air 10/04/18 20:00 98.3 64 18 115/65 (82) 96 Intake and Output 10/04/18 10/05/18 19:00 07:00 Intake Total 840 ml 350 ml Balance 840 ml 350 ml Intake Oral 840 ml 240 ml IV Total 110 ml # Voids 2 2 Laboratory Tests 10/05/18 07:13: White Blood Count 7.4, Red Blood Count 3.46L, Hemoglobin 10.9L, Hematocrit 33.7L , Mean Corpuscular Volume 98, Mean Corpuscular Hemoglobin 31.5H, Mean Corpuscular Hemoglobin Concent 32.3, Red Cell Distribution Width 14.2, Platelet Count 119L, Mean Platelet Volume 4.6L, Neutrophils (%) (Auto) 75.1H, Lymphocytes (%) (Auto) 14.3L, Monocytes (%) (Auto) 8.1, Eosinophils (%) (Auto) 1.8, Basophils (%) (Auto) 0.6, Erythrocyte Sedimentation Rate 53H, Prothrombin Time 10.4, Prothromb Time International Ratio 1.0, Activated Partial Thromboplast Time 33, Sodium Level 141, Potassium Level 5.0, Chloride Level 104 , Carbon Dioxide Level 30, Anion Gap 7, Blood Urea Nitrogen 54H, Creatinine 5.5H , Estimat Glomerular Filtration Rate 10.3, Glucose Level 108H, Calcium Level 8.6 , Total Bilirubin 0.5, Aspartate Amino Transf (AST/SGOT) 14L, Alanine Aminotransferase (ALT/SGPT) 17, Alkaline Phosphatase 58, C-Reactive Protein, Quantitative 11.8H, Total Protein 7.1, Albumin 3.0L, Globulin 4.1, Albumin/ Globulin Ratio 0.7L, Amylase Level 71, Lipase 94 10/05/18 10:07: Stool Occult Blood Negative Height (Feet): 5 Height (Inches): 9.00 Weight (Pounds): 149 Objective Thin WM NCAT supple CTA RRR abd soft (+) lower abd TTP no edema non focal Estefani Clemente MD Oct 05, 2018 19:46
[2018-10-05] MEDS: Tamsulosin 0.4mg cap ORAL SCH (22:04)
[2018-10-05] MEDS: Dyna-Hex 2% Top Sol 2oz TOPIC SCH (22:04)
[2018-10-06] VITALS: BP 124/76
[2018-10-06 04:00] VITALS: BP 118/62
[2018-10-06] MEDS: Morphine Sulfate 4mg/ml Inj (IV/IM USE ONLY) IVP PRN (04:12)
[2018-10-06] MEDS: Zosyn 2.25 gm in D5W 55ml IV SCH (05:35)
[2018-10-06] MEDS ORDERED: Heparin Sod 1000 units/ml 10ml IV SCH (06:00)
--- NOTE | 2018-10-06 06:33 | General Progress Note ---
Assessment/Plan Problem List: (1) Dialysis complication ICD Codes: T82.9XXA - Unspecified complication of cardiac and vascular prosthetic device, implant and graft, initial encounter SNOMED: 89296078, [id number], [id number] (2) Anemia ICD Codes: D64.9 - Anemia, unspecified SNOMED: 720366681 (3) Abdominal pain ICD Codes: R10.9 - Unspecified abdominal pain SNOMED: 18538245 Qualifiers: Qualified Codes: R10.9 - Unspecified abdominal pain (4) Constipation ICD Codes: K59.00 - Constipation, unspecified SNOMED: 39126077 Qualifiers: Qualified Codes: K59.00 - Constipation, unspecified (5) ESRD (end stage renal disease) on dialysis ICD Codes: N18.6 - End stage renal disease; Z99.2 - Dependence on renal dialysis SNOMED: 793325019 Status: stable, progressing Assessment/Plan decrease pain meds full liquid diet bowel regime mobilize pain rx HD per renal abx Subjective ROS Limited/Unobtainable: No Constitutional: Reports: weakness HEENT: Reports: no symptoms Cardiovascular: Reports: no symptoms Respiratory: Reports: no symptoms Gastrointestinal/Abdominal: Reports: abdominal pain Genitourinary: Reports: no symptoms Neurologic/Psychiatric: Reports: no symptoms Endocrine: Reports: no symptoms Hematologic/Lymphatic: Reports: no symptoms Allergies: Coded Allergies: No Known Allergies (Unverified , 07/13/18) All Systems: reviewed and negative except above Subjective still with abd pain. took morphine x 2 last night. liquid stool. tolerating clears. Objective Last 24 Hour Vital Signs Date Time Temp Pulse Resp B/P (MAP) Pulse Ox O2 Delivery O2 Flow Rate FiO2 10/06/18 04:00 98.0 62 17 118/62 (80) 96 10/06/18 00:00 97.6 64 18 124/76 (92) 97 10/05/18 21:00 Room Air 10/05/18 20:00 97.3 68 18 138/78 (98) 96 10/05/18 16:29 98.0 10/05/18 16:00 98.0 54 18 138/72 (94) 97 10/05/18 12:40 99.5 10/05/18 12:00 98.3 52 17 140/73 (95) 96 10/05/18 09:26 99.5 10/05/18 09:00 Room Air 10/05/18 08:54 65 104/74 (84) 10/05/18 08:37 99.5 64 16 96/58 (71) 96 64 10/05/18 08:00 98.1 50 16 145/71 (95) 96 Intake and Output 10/05/18 10/06/18 18:59 06:59 Intake Total 800 ml 415 ml Balance 800 ml 415 ml Intake Oral 800 ml 360 ml IV Total 55 ml # Voids 6 2 # Bowel Movements 4 1 Laboratory Tests 10/05/18 07:13: White Blood Count 7.4, Red Blood Count 3.46L, Hemoglobin 10.9L, Hematocrit 33.7L , Mean Corpuscular Volume 98, Mean Corpuscular Hemoglobin 31.5H, Mean Corpuscular Hemoglobin Concent 32.3, Red Cell Distribution Width 14.2, Platelet Count 119L, Mean Platelet Volume 4.6L, Neutrophils (%) (Auto) 75.1H, Lymphocytes (%) (Auto) 14.3L, Monocytes (%) (Auto) 8.1, Eosinophils (%) (Auto) 1.8, Basophils (%) (Auto) 0.6, Erythrocyte Sedimentation Rate 53H, Prothrombin Time 10.4, Prothromb Time International Ratio 1.0, Activated Partial Thromboplast Time 33, Sodium Level 141, Potassium Level 5.0, Chloride Level 104 , Carbon Dioxide Level 30, Anion Gap 7, Blood Urea Nitrogen 54H, Creatinine 5.5H , Estimat Glomerular Filtration Rate 10.3, Glucose Level 108H, Calcium Level 8.6 , Total Bilirubin 0.5, Aspartate Amino Transf (AST/SGOT) 14L, Alanine Aminotransferase (ALT/SGPT) 17, Alkaline Phosphatase 58, C-Reactive Protein, Quantitative 11.8H, Total Protein 7.1, Albumin 3.0L, Globulin 4.1, Albumin/ Globulin Ratio 0.7L, Amylase Level 71, Lipase 94 10/05/18 10:07: Stool Occult Blood Negative Height (Feet): 5 Height (Inches): 9.00 Weight (Pounds): 152 Objective General Appearance: WD/WN, alert Neck: supple Cardiovascular: regular rhythm Respiratory/Chest: lungs clear, normal breath sounds Abdomen: normal bowel sounds, guarding, tender Edema: no edema noted Arm (L), no edema noted Arm (R), no edema noted Leg (L), no edema noted Leg (R), no edema noted Pedal (L), no edema noted Pedal (R), no edema noted Generalized David Quinonez MD Oct 06, 2018 06:32
[2018-10-06] MEDS: Simethicone 80mg tab ORAL SCH ×3 (06:58→13:54)
[2018-10-06] MEDS: metroNIDAZOLE 500mg tab ORAL SCH ×2 (06:58→13:54)
[2018-10-06 07:38] LABS: BASOPHILS % (AUTO) 1.1 % (0.0-2.0); EOSINOPHILS % (AUTO) 4.1 % (0.0-3.0); HEMATOCRIT 29.5 % (42.0-52.0); HEMOGLOBIN 9.7 G/DL (14.2-18.0); LYMPHOCYTES % (AUTO) 25.2 % (20.0-45.0); MEAN CORPUSCULAR VOLUME 97 FL (80-99); MONOCYTES % (AUTO) 9.8 % (1.0-10.0); NEUTROPHILS % (AUTO) 59.8 % (45.0-75.0); PLATELET COUNT 109 K/UL (150-450); RED BLOOD COUNT 3.03 M/UL (4.70-6.10); RED CELL DISTRIBUTION WIDTH 13.6 % (11.6-14.8); WHITE BLOOD COUNT 4.3 K/UL (4.8-10.8)
[2018-10-06 08:00] VITALS: BP 129/76
[2018-10-06 08:00] LABS: ANION GAP 9 mmol/L (5-15); BLOOD UREA NITROGEN 52 mg/dL (7-18); CALCIUM 8.3 MG/DL (8.5-10.1); CARBON DIOXIDE 29 MMOL/L (21-32); CHLORIDE 103 MMOL/L (98-107); CREATININE 6.2 MG/DL (0.55-1.30); PHOSPHORUS 3.5 MG/DL (2.5-4.9); POTASSIUM 4.6 MMOL/L (3.5-5.1); SODIUM 141 MMOL/L (136-145)
[2018-10-06] MEDS ORDERED: Morphine Sulfate 4mg/ml Inj (IV/IM USE ONLY) IVP PRN (08:00)
--- NOTE | 2018-10-06 08:10 | Urology Progress Note ---
Assessment/Plan Assessment/Plan 1. Lower urinary tract symptoms. 2. BPH. 3. End-stage renal disease, on hemodialysis. 4. Proteinuria. 5. Microhematuria. 6. Cystitis. 7. Renal atrophy. monitor clinically cont flomax abx added Subjective Allergies: Coded Allergies: No Known Allergies (Unverified , 07/13/18) Subjective feels fair Objective Last 24 Hour Vital Signs Date Time Temp Pulse Resp B/P (MAP) Pulse Ox O2 Delivery O2 Flow Rate FiO2 10/06/18 04:00 98.0 62 17 118/62 (80) 96 10/06/18 00:00 97.6 64 18 124/76 (92) 97 10/05/18 21:00 Room Air 10/05/18 20:00 97.3 68 18 138/78 (98) 96 10/05/18 16:29 98.0 10/05/18 16:00 98.0 54 18 138/72 (94) 97 10/05/18 12:40 99.5 10/05/18 12:00 98.3 52 17 140/73 (95) 96 10/05/18 09:26 99.5 10/05/18 09:00 Room Air 10/05/18 08:54 65 104/74 (84) 10/05/18 08:37 99.5 64 16 96/58 (71) 96 64 Intake and Output 10/05/18 10/06/18 18:59 06:59 Intake Total 800 ml 415 ml Balance 800 ml 415 ml Intake Oral 800 ml 360 ml IV Total 55 ml # Voids 6 2 # Bowel Movements 4 1 Current Medications Medications (Trade) Dose Ordered Sig/Isabel Route PRN Reason Start Time Stop Time Status Last Admin Dose Admin Acetaminophen (Tylenol) 500 mg Q6HR PRN ORAL Pain Scale (3-5) 10/02/18 23:15 11/01/18 23:14 Acetaminophen/ Hydrocodone Bitart ([place] 10/325) 1 tab Q6HR PRN ORAL For severe Pain 10/03/18 00:15 10/10/18 00:00 10/05/18 12:10 Acetaminophen/ Hydrocodone Bitart ([place] 5/325) 1 tab Q6H PRN ORAL For moderate Pain 10/03/18 00:15 10/09/18 23:14 10/05/18 15:59 Bisacodyl (Dulcolax) 10 mg DAILYPRN PRN RECTAL Constipation 10/04/18 17:00 11/03/18 16:59 Chlorhexidine Gluconate (Wendy-Hex 2%) 1 applic DAILY@2000 TOPIC 10/04/18 20:00 11/03/18 19:59 10/05/18 22:04 Ciprofloxacin (Cipro 500mg tab) 500 mg Q18H ORAL 10/06/18 09:00 10/13/18 08:59 Citalopram Hydrobromide (celeXA) 20 mg DAILY ORAL 10/03/18 09:00 11/02/18 08:59 10/05/18 08:55 Heparin Sodium (Porcine) (Heparin 5000 units/ml) 5,000 units EVERY 12 HOURS SUBQ 10/03/18 21:00 11/02/18 08:59 10/05/18 22:07 Heparin Sodium (Porcine) (Heparin Sod 1000 units/ml 10ml) 2,000 unit ONCE IV 10/06/18 06:00 10/06/18 18:00 Iopamidol (Isovue-300 100ml) 100 ml NOW PRN INJ Radiology Procedure 10/02/18 19:00 Magnesium Hydroxide (Mom) 30 ml TID PRN ORAL Constipation 10/02/18 23:15 11/01/18 23:14 10/05/18 02:24 Metronidazole (Flagyl) 500 mg Q8HR ORAL 10/06/18 07:00 10/13/18 06:59 10/06/18 06:58 Morphine Sulfate (Morphine Sulfate) 0.5 mg Q4H PRN IVP severe breakthrough pain 10/06/18 08:00 10/13/18 07:59 Ondansetron HCl (Zofran) 4 mg Q6H PRN IVP Nausea & Vomiting 10/03/18 12:00 11/02/18 11:59 10/05/18 09:06 Pantoprazole (Protonix) 40 mg DAILY IVP 10/03/18 09:00 11/02/18 08:59 10/05/18 08:56 Simethicone (Mylicon) 80 mg TID ORAL 10/06/18 06:45 11/05/18 06:44 10/06/18 06:58 Tamsulosin HCl (Flomax) 0.4 mg BEDTIME ORAL 10/03/18 21:00 11/02/18 20:59 10/05/18 22:04 Laboratory Tests 10/05/18 10:07: Stool Occult Blood Negative 10/06/18 06:12: White Blood Count 4.3L, Red Blood Count 3.03L, Hemoglobin 9.7L, Hematocrit 29.5L , Mean Corpuscular Volume 97, Mean Corpuscular Hemoglobin 32.1H, Mean Corpuscular Hemoglobin Concent 33.0, Red Cell Distribution Width 13.6, Platelet Count 109L, Mean Platelet Volume 4.3L, Neutrophils (%) (Auto) 59.8, Lymphocytes (%) (Auto) 25.2, Monocytes (%) (Auto) 9.8, Eosinophils (%) (Auto) 4.1H, Basophils (%) (Auto) 1.1, Sodium Level 141, Potassium Level 4.6, Chloride Level 103, Carbon Dioxide Level 29, Anion Gap 9, Blood Urea Nitrogen 52H, Creatinine 6.2H, Estimat Glomerular Filtration Rate 9.0, Glucose Level 108H, Calcium Level 8.3L, Phosphorus Level 3.5 Height (Feet): 5 Height (Inches): 9.00 Weight (Pounds): 152 Objective exam stable Kahlil Yu MD Oct 06, 2018 08:10
[2018-10-06] MEDS ORDERED: Ciprofloxacin 500mg tab ORAL SCH (09:00)
[2018-10-06 10:17] LABS: ANION GAP 10 mmol/L (5-15); BASOPHILS % (AUTO) 0.9 % (0.0-2.0); BLOOD UREA NITROGEN 22 mg/dL (7-18); CALCIUM 9.1 MG/DL (8.5-10.1); CARBON DIOXIDE 29 MMOL/L (21-32); CHLORIDE 100 MMOL/L (98-107); CREATININE 2.9 MG/DL (0.55-1.30); EOSINOPHILS % (AUTO) 3.4 % (0.0-3.0); HEMATOCRIT 33.2 % (42.0-52.0); MEAN CORPUSCULAR VOLUME 97 FL (80-99); MONOCYTES % (AUTO) 10.8 % (1.0-10.0); NEUTROPHILS % (AUTO) 62.9 % (45.0-75.0); PLATELET COUNT 130 K/UL (150-450); POTASSIUM 3.6 MMOL/L (3.5-5.1); RED BLOOD COUNT 3.44 M/UL (4.70-6.10); RED CELL DISTRIBUTION WIDTH 13.7 % (11.6-14.8); SODIUM 139 MMOL/L (136-145); WHITE BLOOD COUNT 4.8 K/UL (4.8-10.8)
[2018-10-06] MEDS: Citalopram Hydrobromide 10mg Tab ORAL SCH (10:28)
[2018-10-06] MEDS: Heparin 5000 units/ml inj SUBQ SCH (10:32)
--- NOTE | 2018-10-06 10:41 | General Progress Note ---
Assessment/Plan Assessment/Plan Assessment - acute lower abd pain x 1 week - appears improved - no BM x 1 week - resolved - CT findings of ? thickened colon of doubtful significance - chronic constipation - Anemia - CRF / HD Recommendations - advance diet - would wean off narcotics - follow Sx and exam - Check OB --> negative - Eventual colonoscopy (Tuesday or also OK as outpatient) Subjective Allergies: Coded Allergies: No Known Allergies (Unverified , 07/13/18) Subjective comfortable on my arrival still c/o abd pain (+) BM with prep tolerating PO d/w PMD Objective Last 24 Hour Vital Signs Date Time Temp Pulse Resp B/P (MAP) Pulse Ox O2 Delivery O2 Flow Rate FiO2 10/06/18 09:00 Room Air 10/06/18 04:00 98.0 62 17 118/62 (80) 96 10/06/18 00:00 97.6 64 18 124/76 (92) 97 10/05/18 21:00 Room Air 10/05/18 20:00 97.3 68 18 138/78 (98) 96 10/05/18 16:29 98.0 10/05/18 16:00 98.0 54 18 138/72 (94) 97 10/05/18 12:40 99.5 10/05/18 12:00 98.3 52 17 140/73 (95) 96 Intake and Output 10/05/18 10/06/18 19:00 07:00 Intake Total 800 ml 415 ml Balance 800 ml 415 ml Intake Oral 800 ml 360 ml IV Total 55 ml # Voids 6 2 # Bowel Movements 4 1 Laboratory Tests 10/06/18 06:12: White Blood Count 4.3L, Red Blood Count 3.03L, Hemoglobin 9.7L, Hematocrit 29.5L , Mean Corpuscular Volume 97, Mean Corpuscular Hemoglobin 32.1H, Mean Corpuscular Hemoglobin Concent 33.0, Red Cell Distribution Width 13.6, Platelet Count 109L, Mean Platelet Volume 4.3L, Neutrophils (%) (Auto) 59.8, Lymphocytes (%) (Auto) 25.2, Monocytes (%) (Auto) 9.8, Eosinophils (%) (Auto) 4.1H, Basophils (%) (Auto) 1.1, Sodium Level 141, Potassium Level 4.6, Chloride Level 103, Carbon Dioxide Level 29, Anion Gap 9, Blood Urea Nitrogen 52H, Creatinine 6.2H, Estimat Glomerular Filtration Rate 9.0, Glucose Level 108H, Calcium Level 8.3L, Phosphorus Level 3.5 10/06/18 09:50: White Blood Count 4.8, Red Blood Count 3.44L, Hemoglobin 11.0L, Hematocrit 33.2L , Mean Corpuscular Volume 97, Mean Corpuscular Hemoglobin 31.8H, Mean Corpuscular Hemoglobin Concent 33.0, Red Cell Distribution Width 13.7, Platelet Count 130L, Mean Platelet Volume 5.0L, Neutrophils (%) (Auto) 62.9, Lymphocytes (%) (Auto) 22.0, Monocytes (%) (Auto) 10.8H, Eosinophils (%) (Auto) 3.4H, Basophils (%) (Auto) 0.9, Sodium Level 139, Potassium Level 3.6, Chloride Level 100, Carbon Dioxide Level 29, Anion Gap 10, Blood Urea Nitrogen 22H, Creatinine 2.9#H, Estimat Glomerular Filtration Rate 21.6, Glucose Level 94, Calcium Level 9.1 Height (Feet): 5 Height (Inches): 9.00 Weight (Pounds): 152 Objective Thin WM NCAT supple CTA RRR abd soft (+) diffuse abd TTP (no apparent TTP while patient distracted) no edema non focal Estefani Clemente MD Oct 06, 2018 10:41
[2018-10-06] MEDS: Pantoprazole Inj IVP SCH (11:23)
--- NOTE | 2018-10-06 11:34 | Nephrology Progress Note ---
Assessment/Plan Plan Colitis ? Rx per GI/GS Cystitis - per ESRD + hyperkalemia - today. Subjective Subjective c/o severe abdominal pain. + constipation. Objective Objective Last 24 Hour Vital Signs Date Time Temp Pulse Resp B/P (MAP) Pulse Ox O2 Delivery O2 Flow Rate FiO2 10/06/18 10:59 98.0 10/06/18 09:00 Room Air 10/06/18 04:00 98.0 62 17 118/62 (80) 96 10/06/18 00:00 97.6 64 18 124/76 (92) 97 10/05/18 21:00 Room Air 10/05/18 20:00 97.3 68 18 138/78 (98) 96 10/05/18 16:29 98.0 10/05/18 16:00 98.0 54 18 138/72 (94) 97 10/05/18 12:40 99.5 10/05/18 12:00 98.3 52 17 140/73 (95) 96 Intake and Output 10/05/18 10/06/18 19:00 07:00 Intake Total 800 ml 415 ml Balance 800 ml 415 ml Intake Oral 800 ml 360 ml IV Total 55 ml # Voids 6 2 # Bowel Movements 4 1 Laboratory Tests 10/06/18 06:12: White Blood Count 4.3L, Red Blood Count 3.03L, Hemoglobin 9.7L, Hematocrit 29.5L , Mean Corpuscular Volume 97, Mean Corpuscular Hemoglobin 32.1H, Mean Corpuscular Hemoglobin Concent 33.0, Red Cell Distribution Width 13.6, Platelet Count 109L, Mean Platelet Volume 4.3L, Neutrophils (%) (Auto) 59.8, Lymphocytes (%) (Auto) 25.2, Monocytes (%) (Auto) 9.8, Eosinophils (%) (Auto) 4.1H, Basophils (%) (Auto) 1.1, Sodium Level 141, Potassium Level 4.6, Chloride Level 103, Carbon Dioxide Level 29, Anion Gap 9, Blood Urea Nitrogen 52H, Creatinine 6.2H, Estimat Glomerular Filtration Rate 9.0, Glucose Level 108H, Calcium Level 8.3L, Phosphorus Level 3.5 10/06/18 09:50: White Blood Count 4.8, Red Blood Count 3.44L, Hemoglobin 11.0L, Hematocrit 33.2L , Mean Corpuscular Volume 97, Mean Corpuscular Hemoglobin 31.8H, Mean Corpuscular Hemoglobin Concent 33.0, Red Cell Distribution Width 13.7, Platelet Count 130L, Mean Platelet Volume 5.0L, Neutrophils (%) (Auto) 62.9, Lymphocytes (%) (Auto) 22.0, Monocytes (%) (Auto) 10.8H, Eosinophils (%) (Auto) 3.4H, Basophils (%) (Auto) 0.9, Sodium Level 139, Potassium Level 3.6, Chloride Level 100, Carbon Dioxide Level 29, Anion Gap 10, Blood Urea Nitrogen 22H, Creatinine 2.9#H, Estimat Glomerular Filtration Rate 21.6, Glucose Level 94, Calcium Level 9.1 Height (Feet): 5 Height (Inches): 9.00 Weight (Pounds): 152 Objective Cachectic. CV RR Lungs CTA. Abd Soft, diffusely tender. BS + E no CCE. Rickey Cazares MD Oct 06, 2018 11:34
[2018-10-06 12:00] VITALS: BP 136/72
--- NOTE | 2018-10-06 12:20 | Surgery Progress Note ---
Surgery Progress Note Subjective Additional Comments no acute events. stable. labs noted. states abd discomfort same and wants pain meds Objective Last 24 Hour Vital Signs Date Time Temp Pulse Resp B/P (MAP) Pulse Ox O2 Delivery O2 Flow Rate FiO2 10/06/18 10:59 98.0 10/06/18 09:00 Room Air 10/06/18 08:00 98.0 66 20 129/76 (93) 98 10/06/18 04:00 98.0 62 17 118/62 (80) 96 10/06/18 00:00 97.6 64 18 124/76 (92) 97 10/05/18 21:00 Room Air 10/05/18 20:00 97.3 68 18 138/78 (98) 96 10/05/18 16:29 98.0 10/05/18 16:00 98.0 54 18 138/72 (94) 97 10/05/18 12:40 99.5 I&O Intake and Output 10/05/18 10/06/18 19:00 07:00 Intake Total 800 ml 415 ml Balance 800 ml 415 ml Intake Oral 800 ml 360 ml IV Total 55 ml # Voids 6 2 # Bowel Movements 4 1 Drains: none Cardiovascular: RSR Respiratory: clear Abdomen: soft, tenderness, present bowel sounds, non-distended Extremities: no cyanosis Laboratory Tests Test 10/06/18 06:12 10/06/18 09:50 White Blood Count 4.3 K/UL (4.8-10.8) L 4.8 K/UL (4.8-10.8) Red Blood Count 3.03 M/UL (4.70-6.10) L 3.44 M/UL (4.70-6.10) L Hemoglobin 9.7 G/DL (14.2-18.0) L 11.0 G/DL (14.2-18.0) L Hematocrit 29.5 % (42.0-52.0) L 33.2 % (42.0-52.0) L Mean Corpuscular Volume 97 FL (80-99) 97 FL (80-99) Mean Corpuscular Hemoglobin 32.1 PG (27.0-31.0) H 31.8 PG (27.0-31.0) H Mean Corpuscular Hemoglobin Concent 33.0 G/DL (32.0-36.0) 33.0 G/DL (32.0-36.0) Red Cell Distribution Width 13.6 % (11.6-14.8) 13.7 % (11.6-14.8) Platelet Count 109 K/UL (150-450) L 130 K/UL (150-450) L Mean Platelet Volume 4.3 FL (6.5-10.1) L 5.0 FL (6.5-10.1) L Neutrophils (%) (Auto) 59.8 % (45.0-75.0) 62.9 % (45.0-75.0) Lymphocytes (%) (Auto) 25.2 % (20.0-45.0) 22.0 % (20.0-45.0) Monocytes (%) (Auto) 9.8 % (1.0-10.0) 10.8 % (1.0-10.0) H Eosinophils (%) (Auto) 4.1 % (0.0-3.0) H 3.4 % (0.0-3.0) H Basophils (%) (Auto) 1.1 % (0.0-2.0) 0.9 % (0.0-2.0) Sodium Level 141 MMOL/L (136-145) 139 MMOL/L (136-145) Potassium Level 4.6 MMOL/L (3.5-5.1) 3.6 MMOL/L (3.5-5.1) Chloride Level 103 MMOL/L (98-107) 100 MMOL/L (98-107) Carbon Dioxide Level 29 MMOL/L (21-32) 29 MMOL/L (21-32) Anion Gap 9 mmol/L (5-15) 10 mmol/L (5-15) Blood Urea Nitrogen 52 mg/dL (7-18) H 22 mg/dL (7-18) H Creatinine 6.2 MG/DL (0.55-1.30) H 2.9 MG/DL (0.55-1.30) #H Estimat Glomerular Filtration Rate 9.0 mL/min (>60) 21.6 mL/min (>60) Glucose Level 108 MG/DL (74-106) H 94 MG/DL (74-106) Calcium Level 8.3 MG/DL (8.5-10.1) L 9.1 MG/DL (8.5-10.1) Phosphorus Level 3.5 MG/DL (2.5-4.9) Plan Problems: (1) Abdominal pain Assessment & Plan: abdominal pain no n/v/f/c exam with abd tenderness labs nml CT noted Possible sigmoid and rectal wall thickening, could indicate colitis/proctitis. Correlate with clinical findings Mild bladder wall thickening and perivesical fat infiltration, concerning for cystitis. Correlate with clinical findings Atrophic bilateral kidneys, also described on prior ultrasound Subcentimeter low-attenuation lesions in the kidneys, too small to characterize , most likely benign cortical cysts. No further follow-up necessary likely mild colitis okay for diet IV abx will follow clinically no acute surgical intervention planned thank you Alan Pineda Oct 06, 2018 12:20
[2018-10-06] MEDS ORDERED: CIPROFLOXACIN500 MG PO (13:59)
[2018-10-06] MEDS ORDERED: PERCOCET 10-321 EAC1 PO (14:00)
[2018-10-06] MEDS ORDERED: METRONIDAZOLE500 MG ORAL (14:00)
[2018-10-06] MEDS ORDERED: Tubing IV Secondary IV ONE (14:22)
--- NOTE | 2018-10-08 12:49 | Discharge Summary ---
Discharge Summary Discharge Summary _ DATE OF ADMISSION: 10/02/2018 DATE OF DISCHARGE: 10/06/2018 DISCHARGED BY: Dr. Quinonez REASON FOR ADMISSION: 68 years old male with past medical history of end-stage renal disease, on hemodialysis, presented to emergency department complaining of abdominal pain and vomiting for 1 week. Patient reported being constipated. Patient reported abdominal pain , 10 out of 10 ,sharp nonradiating. Patient reported not being able to complete hemodialysis, due to significant pain. He denied chest pain or shortness of breath. He denied fever and chills. Upon evaluation vital signs were stable. Laboratory workup revealed no leukocytosis ,hemoglobin 10.8, hematocrit 33.1 platelets 99 . Urinalysis revealed no evidence of UTI , but showed +3 protein, +2 glucose , +4 blood. Chemistry revealed potassium 5.2, BUN 87, creatinine 7 consistent with known history of end-stage renal disease. Stable LFT and lipase. Troponin negative. EKG revealed normal sinus rhythm , no acute ischemic changes. CT of the abdomen and pelvis revealed evidence of right inguinal hernia repair, atrophic kidneys. Sigmoid and rectal wall thickening, possibly indicative of colitis/proctitis. Mild bladder wall thickening and perivesical fat infiltration, concerning for cystitis. Patient was admitted for further management CONSULTANTS: GI specialist Dr. Clemente sign poster Dr. Clemons urologist Dr. Yu general surgery Dr. Kerr HOSPITAL COURSE: Patient admitted. GI specialist and surgery consults were requested . Pain management was addressed. Supportive care with antiemetic provided. DVT prophylaxis provided. Patient started on GI prophylaxis with IV PPI. Per GI specialist , CT results were borderline with respect to colonic findings and mild thickening of the left colon was typically nonspecific. Patient started on empiric antibiotics . Patient initially was on clear liquid diet. Bowel regimen instituted. GI specialist recommended colonoscopy , which coudl be done as outpatient . Use of narcotics was minimized. lactic acid was witnin normal limits. Constipation resolved. Per surgery , patient likely had mild colitis. Patient was on the IV antibiotics. No acute surgical intervention was planned at this time. Diet was advanced as tolerated. Patient was able to tolerate diet,. Pain management was addressed, and pain was controlled, Surgeon cleared patient for discharge to complete antibiotics as outpatient. Stool for occult blood was negative. Hemoglobin and hematocrit were closely monitored with goal to keep hemoglobin above 7. Prior to discharge hemoglobin 11 hematocrit 33.2. GI specialist cleared patient for discharge and recommended to follow-up with outpatient colonoscopy. Hemodialysis was provided as per nephrology recommendations with close monitoring of volumes, renal parameters and electrolytes. Electrolytes corrected as needed. Urologist followed . Per urologist , lower urinary tract symptoms were likely secondary to BPH and exacerbated by constipation. Patient started on Flomax. Urologist recommended cystoscopy to evaluate the urinary tract, however it can be done on elective basis. Patient clinically stabilized and was ready for discharge home. FINAL DIAGNOSES: Acute abdominal pain , probably due to mild colitis - resolved Obstipation with chronic constipation End-stage renal disease, on hemodialysis Hyperkalemia Cystitis Anemia BPH Microhematuria Proteinuria DISCHARGE MEDICATIONS: See Medication Reconciliation list. DISCHARGE INSTRUCTIONS: Patient was discharged home . Follow up with primary care provider in one week. Follow-up with outpatient hemodialysis as scheduled. Follow-up with GI specialist for elective colonoscopy. Follow-up with urologist for cystoscopy. I have been assigned to dictate discharge summary for this account. I was not involved in the patient's management. Debra Burgess NP Oct 08, 2018 12:49
== END 2018-10-06 14:23 | disposition home or self-care (01) | DRG 391 ==
LOC: EMR 19:09 → 4E 20:14 → EDBEDREQ 21:26 → 4E 10-03 05:22 → SDSOVERFLO 10-06 11:51 → 4E 10-06 11:52
PROC: 5A1D70Z Performance of Urinary Filtration, Intermittent, Less than 6 Hours Per Day (ICD-10-PCS; principal; 2018-10-03)
PROC: 5A1D70Z Performance of Urinary Filtration, Intermittent, Less than 6 Hours Per Day (ICD-10-PCS; 2018-10-04)
DX: K52.9 Noninfective gastroenteritis and colitis, unspecified (principal); N18.6 End stage renal disease; I12.0 Hypertensive chronic kidney disease with stage 5 chronic kidney disease or end stage renal disease; N30.90 Cystitis, unspecified without hematuria; Z99.2 Dependence on renal dialysis; D64.9 Anemia, unspecified; N40.1 Benign prostatic hyperplasia with lower urinary tract symptoms; K59.00 Constipation, unspecified; E87.5 Hyperkalemia; F32.89 Other specified depressive episodes
CPT/HCPCS: 36415; 74177; 80048; 80053; 81003; 82150; 82270; 82550; 83605; 83690; 84100; 84484; 85025; 85610; 85651; 85730; 86140; 93005; 96365; 96366; 96375; 99285; J2405